=== PATIENT | female | born 1985 | race African-American/Black ===

== ENCOUNTER 2016-11-21 16:41 | Emergency (ER) | payer OTHER ==
[2016-11-21 16:50] VITALS: BMI 29.9
[2016-11-21] MEDS ORDERED: FAMOTIDINE 20 MG/50 ML IVPB 50 ML IVPB ONE ×2 (16:52→17:27)
[2016-11-21] MEDS ORDERED: ONDANSETRON 4 MG/2 ML VIAL IVPB ONE (16:52)
[2016-11-21] MEDS ORDERED: SODIUM CHLORIDE 0.9% 500 ML INFUS.BAG IV ONE (16:52)
--- NOTE | 2016-11-21 17:25 | PDOC ---
[id number] 31 year old female with significant medical hx of DM and gastroparesis who is presenting to the ED with five days of epigastric pain, nausea and vomiting. Patient complains of multiple episodes of vomiting per day ; today shes had two prior to arrival to the ED. She notes noticing little blood in her vomit and states that she's been unable to keep anything down. Today the patient spoke with her PMD who referred her to the ED. Patient reports she recently stopped her reglan a few months ago due to side effects of lower extremity discomfort and cramping. The patient hasnt had a problem since the past week. Denies fever, chills, diarrhea, lightheadedness, dizziness, shortness of breath , dyspnea, chest pain. PMD: Landen Ridley MD <Paulette Flanagan - Last Filed: 11/21/16 18:16> <Neel Zavala - Last Filed: 01/28/17 10:25> - General Chief Complaint: Nausea/Vomiting Stated Complaint: NAUSEA/VOMITING Time Seen by Provider: 11/21/16 16:44 Past History <Paulette Flanagan - Last Filed: 11/21/16 18:16> - Past Medical History Diabetes: Yes - Surgical History Cholecystectomy: Yes - Psycho/Social/Smoking Cessation Hx Anxiety: No Suicidal Ideation: No Smoking History: Never smoked Have you smoked in the past 12 months: No Hx Alcohol Use: No Drug/Substance Use Hx: No Substance Use Type: None Hx Substance Use Treatment: No <Neel Zavala - Last Filed: 01/28/17 10:25> - Past Medical History Allergies/Adverse Reactions: Allergies Allergy/AdvReac Type Severity Reaction Status Date / Time No Known Allergies Allergy Verified 11/21/16 16:45 Home Medications: Ambulatory Orders Insulin Glargine,Hum.rec.anlog [Lantus (10mL VIAL) -] 20 units SQ DAILY Metoclopramide HCl [Reglan -] 5 mg PO TIDAC #90 tablet 05/01/16 Glipizide [Glipizide Xl] 2.5 mg PO BID 06/13/16 Metformin HCl 500 mg PO BID 06/13/16 Acetaminophen [Tylenol .Regular Strength -] 650 mg PO Q6H PRN #0 tablet 09/18/ 16 Cephalexin [Keflex] 500 mg PO TID #15 capsule 06/16/16 Levofloxacin [Levaquin -] 500 mg PO DAILY #7 tablet 11/21/16 Ondansetron [Zofran *Odt*] 4 mg SL TID #60 od.tablet 11/21/16 Review of Systems - Review of Systems Comments:: 11/21/16 18:18 GENERAL/CONSTITUTIONAL: No fever or chills. No weakness. HEAD, EYES, EARS, NOSE AND THROAT: No change in vision. No ear pain or discharge. No sore throat. CARDIOVASCULAR: No chest pain or shortness of breath. RESPIRATORY: No cough, wheezing, or hemoptysis. GASTROINTESTINAL: Nausea, vomiting, abdominal pain. No diarrhea or constipation. GENITOURINARY: No dysuria, frequency, or change in urination. MUSCULOSKELETAL: No joint or muscle swelling or pain. No neck or back pain. SKIN: No rash NEUROLOGIC: No headache, vertigo, loss of consciousness, or change in strength/ sensation. <Paulette Flanagan - Last Filed: 11/21/16 18:16> *Physical Exam - Vital Signs Last Vital Signs Temp Pulse Resp BP Pulse Ox 98.2 F 86 16 149/98 99 11/21/16 16:45 11/21/16 17:40 11/21/16 17:40 11/21/16 17:40 11/21/16 16:45 - Physical Exam Comments: 11/21/16 18:19 GENERAL: Awake, alert, and fully oriented, in no acute distress HEAD: No signs of trauma EYES: PERRLA, EOMI, sclera anicteric, conjunctiva clear ENT: Auricles normal inspection, hearing grossly normal, nares patent, oropharynx clear without exudates. Moist mucosa NECK: Normal ROM, supple, no lymphadenopathy, JVD, or masses LUNGS: Breath sounds equal, clear to auscultation bilaterally. No wheezes, and no crackles HEART: Regular rate and rhythm, normal S1 and S2, no murmurs, rubs or gallops ABDOMEN: Soft, nontender, normoactive bowel sounds. No guarding, no rebound. No masses EXTREMITIES: Normal range of motion, no edema. No clubbing or cyanosis. No cords, erythema, or tenderness NEUROLOGICAL: Cranial nerves II through XII grossly intact. Normal speech, normal gait SKIN: Warm, Dry, normal turgor, no rashes or lesions noted. ENDOCRINE: No increased thirst. No abnormal weight change. HEMATOLOGIC/LYMPHATIC: No anemia, easy bleeding, or history of blood clots. ALLERGIC/IMMUNOLOGIC: No hives or skin allergy. <PanchitoPaulette - Last Filed: 11/21/16 18:16> - Vital Signs Last Vital Signs Temp Pulse Resp BP Pulse Ox 98.2 F 96 H 19 159/106 99 11/21/16 16:45 11/21/16 16:45 11/21/16 16:45 11/21/16 16:45 11/21/16 16:45 <Neel Zavala - Last Filed: 01/28/17 10:25> ED Treatment Course - LABORATORY CBC & Chemistry Diagram: 11/21/16 17:15 11/21/16 17:15 - ADDITIONAL ORDERS Additional order review: Laboratory Results 11/21/16 11/21/16 11/21/16 17:15 17:15 17:01 INR 1.23 H PTT (Actin FS) 29.9 Sodium 137 Potassium 3.6 Chloride 98 Carbon Dioxide 25 Anion Gap 14 BUN 9 D POC Glucometer Random Glucose 121 H Calcium 9.4 Albumin 3.8 D Urine Color [place] Urine Appearance Cloudy Urine pH 6.0 Ur Specific [place] 1.021 Urine Protein 2+ H Urine Glucose (UA) Negative Urine Ketones 1+ H Urine Blood 3+ H Urine Nitrite Positive Urine Bilirubin Negative Urine Urobilinogen 2.0 e.u/dl H Ur Leukocyte Esterase Trace H D Urine RBC 68 Urine WBC 22 Ur Epithelial Cells Few Urine Bacteria Many Hyaline Casts 11 Urine Mucus Many Urine Yeast Few Urine HCG, Qual 11/21/16 11/21/16 16:54 16:51 INR PTT (Actin FS) Sodium Potassium Chloride Carbon Dioxide Anion Gap BUN POC Glucometer 117.20052 Random Glucose Calcium Albumin Urine Color Urine Appearance Urine pH Ur Specific [place] Urine Protein Urine Glucose (UA) Urine Ketones Urine Blood Urine Nitrite Urine Bilirubin Urine Urobilinogen Ur Leukocyte Esterase Urine RBC Urine WBC Ur Epithelial Cells Urine Bacteria Hyaline Casts Urine Mucus Urine Yeast Urine HCG, Qual Negative 11/21/16 11/21/16 17:15 16:54 RBC 4.60 D MCV 79.8 L MCHC 33.0 RDW 15.6 MPV 8.9 Neutrophils % 43.6 D Lymphocytes % 45.9 H D Monocytes % 8.0 Eosinophils % 1.3 Basophils % 1.2 POC Glucometer 117.74753 - Medications Given in the ED: ED Medications Discontinued Medications Generic Name Dose Route Start Last Admin Trade Name Doguie PRN Reason Stop Dose Admin Famotidine/Sodium Chloride 50 mls @ 100 mls/hr 11/21/16 16:52 11/21/16 17:28 Pepcid 20 Mg Premixed Ivpb - IVPB 11/21/16 17:21 100 mls/hr ONCE ONE Administration Ondansetron HCl 4 mg 11/21/16 16:52 11/21/16 17:28 Zofran Injection IVPB 11/21/16 16:53 4 mg ONCE ONE Administration Sodium Chloride 1,000 ml 11/21/16 16:52 11/21/16 17:28 Normal Saline - IV 11/21/16 16:53 1,000 ml ONCE ONE Administration <Paulette Flanagan - Last Filed: 11/21/16 18:16> - LABORATORY CBC & Chemistry Diagram: 11/21/16 17:15 11/21/16 17:15 <Neel Zavala - Last Filed: 01/28/17 10:25> *DC/Admit/Observation/Transfer - Attestations Scribe Attestion: 11/21/16 18:19 Documentation prepared by Paulette Flanagan, acting as medical center director for Neel Zavala MD. <Paulette Flanagan - Last Filed: 11/21/16 18:16> - Attestations Physician Attestion: 11/21/16 17:25 I, Dr. Neel Zavala, attest that this document has been prepared under my direction and personally reviewed by me in its entirety. I further attest, that it accurately reflects all work, treatment, procedures and medical decision -making performed by me. <Neel Zavala - Last Filed: 01/28/17 10:25> Diagnosis at time of Disposition: Gastroparesis due to DM UTI (urinary tract infection) Qualifiers: Urinary tract infection type: site unspecified Hematuria presence: without hematuria Qualified Code(s): N39.0 - Urinary tract infection, site not specified Constipation Qualifiers: Constipation type: other constipation type Qualified Code(s): K59.09 - Other constipation - Discharge Dispostion Disposition: HOME Condition at time of disposition: Stable - Prescriptions Prescriptions: Levofloxacin [Levaquin -] 500 mg PO DAILY #7 tablet Ondansetron [Zofran *Odt*] 4 mg SL TID #60 od.tablet - Referrals Referrals: Landen Ridley MD [Primary Care Provider] - - Patient Instructions Printed Discharge Instructions: Increased Dietary Fiber May Improve Constipation Conditions With Pelvic Jimmy, DI for Urinary Tract Infection (UTI), DI for Constipation
[2016-11-21] MEDS ORDERED: ONDANSETRON 4 MG/2 ML VIAL ONE ×2 (17:27→22:36)
[2016-11-21 17:28] LABS: URINE APPEARANCE CLOUDY; URINE BILIRUBIN NEGATIVE (NEGATIVE); URINE COLOR AMBER; URINE GLUCOSE (UA) NEGATIVE (NEGATIVE); URINE KETONE 1+ (NEGATIVE); URINE NITRITE POSITIVE (NEGATIVE); URINE UROBILINOGEN 2.0 E.U/dl E.U./dl (0.2-1.0)
[2016-11-21 17:29] LABS: URINE BLOOD 3+ (NEGATIVE); URINE LEUK ESTERASE TRACE (NEGATIVE); URINE PROTEIN 2+ (NEGATIVE)
[2016-11-21 17:31] LABS: URINE BACTERIA MANY /hpf (NONE SEEN); URINE HYALINE CAST 11 /lpf; URINE MUCUS MANY; URINE RBC 68 /hpf (0-3); URINE WBC 22 /hpf (3-5); YEAST FEW
[2016-11-21 17:34] LABS: BASOPHIL 1.2 % (0-2.0); EOSINOPHIL 1.3 % (0-4.5); MCH 26.4 pg (25.7-33.7); MEAN CELL VOLUME 79.8 fl (80-96); MEAN PLT VOLUME 8.9 fl (7.5-11.1); NEUTROPHILS 43.6 % (42.8-82.8); PLATELET COUNT 393 K/MM3 (134-434); RDW 15.6 % (11.6-15.6)
[2016-11-21 17:46] LABS: INR 1.23 (0.82-1.09); PROTHROMBIN TIME (PATIENT) 13.6 SEC (9.98-11.88)
[2016-11-21 17:49] LABS: ACTIVATED PTT 29.9 SECONDS (26.9-34.4)
[2016-11-21 18:14] LABS: ALBUMIN 3.8 g/dl (3.4-5.0); ANION GAP 14 (8-16); CALCIUM 9.4 mg/dL (8.5-10.1); CO2 25 mmol/L (21-32); GLUCOSE,RANDOM 121 mg/dL (74-106)
[2016-11-21 18:17] LABS: CREATININE 0.6 mg/dL (0.55-1.02); SGOT/AST 14 U/L (15-37); SGPT/ALT 17 U/L (12-78)
[2016-11-21 18:18] LABS: ALK PHOS 85 U/L (45-117); BILIRUBIN,TOTAL 0.5 mg/dL (0.2-1.0); TOT PROT 8.8 g/dl (6.4-8.2)
[2016-11-21] MEDS ORDERED: INSULIN REGULAR HUMAN 100 UNITS/ML *VIAL IVPUSH ONE (18:43)
[2016-11-21] MEDS ORDERED: SODIUM CHLORIDE 1,000 ML IV STA ×2 (18:43→18:44)
[2016-11-21] MEDS ORDERED: LEVOFLOXACIN 500 MG IVPB 100 ML IVPB ONE ×2 (19:23→19:39)
[2016-11-21] MEDS ORDERED: DEXTROSE 5%-0.45% SALINE 1,000 ML IV SCH (19:30)
[2016-11-21] MEDS ORDERED: INSULIN REGULAR HUMAN 100 UNITS/ML *VIAL ONE (19:40)
[2016-11-21] MEDS ORDERED: KETOROLAC TROMETHAMINE 30 MG/1 ML VIAL IVPUSH ONE (20:33)
[2016-11-21] MEDS ORDERED: KETOROLAC TROMETHAMINE 30 MG/1 ML VIAL ONE (20:39)
[2016-11-21 21:00] LABS: URINE APPEARANCE SLCLOUDY; URINE BILIRUBIN NEGATIVE (NEGATIVE); URINE BLOOD 3+ (NEGATIVE); URINE COLOR YELLOW; URINE GLUCOSE (UA) NEGATIVE (NEGATIVE); URINE KETONE 1+ (NEGATIVE); URINE LEUK ESTERASE NEGATIVE (NEGATIVE); URINE NITRITE POSITIVE (NEGATIVE); URINE PROTEIN NEGATIVE (NEGATIVE); URINE UROBILINOGEN NEGATIVE E.U./dl (0.2-1.0)
[2016-11-21 21:03] LABS: URINE BACTERIA MODERATE /hpf (NONE SEEN); URINE MUCUS MANY; URINE RBC 38 /hpf (0-3); URINE WBC 6 /hpf (3-5); YEAST RARE
[2016-11-21] MEDS ORDERED: LACTULOSE 20 GM/30 ML UDC (FOR ORAL USE ONLY) PO ONE (22:06)
--- NOTE | 2016-11-21 22:09 | PDOC ---
*Physical Exam - Vital Signs Last Vital Signs Temp Pulse Resp BP Pulse Ox 98.2 F 86 16 149/98 99 11/21/16 16:45 11/21/16 17:40 11/21/16 17:40 11/21/16 17:40 11/21/16 16:45 ED Treatment Course - LABORATORY CBC & Chemistry Diagram: 11/21/16 17:15 11/21/16 17:15 - ADDITIONAL ORDERS Additional order review: Laboratory Results 11/21/16 11/21/16 11/21/16 20:30 17:15 17:15 INR 1.23 H PTT (Actin FS) 29.9 Sodium 137 Potassium 3.6 Chloride 98 Carbon Dioxide 25 Anion Gap 14 BUN 9 D Creatinine 0.6 D Creat Clearance w eGFR > 60 POC Glucometer Random Glucose 121 H Calcium 9.4 Total Bilirubin 0.5 D AST 14 L ALT 17 Alkaline Phosphatase 85 Total Protein 8.8 H D Albumin 3.8 D Urine Color Yellow Urine Appearance Slcloudy Urine pH 7.0 Ur Specific [place] 1.014 Urine Protein Negative Urine Glucose (UA) Negative Urine Ketones 1+ H Urine Blood 3+ H Urine Nitrite Positive Urine Bilirubin Negative Urine Urobilinogen Negative Ur Leukocyte Esterase Negative Urine RBC 38 Urine WBC 6 Ur Epithelial Cells Rare Urine Bacteria Moderate Hyaline Casts Urine Mucus Many Urine Yeast Rare Urine HCG, Qual Acetone, Qual 11/21/16 11/21/16 11/21/16 17:15 17:01 16:54 INR PTT (Actin FS) Sodium Potassium Chloride Carbon Dioxide Anion Gap BUN Creatinine Creat Clearance w eGFR POC Glucometer 117.32485 Random Glucose Calcium Total Bilirubin AST ALT Alkaline Phosphatase Total Protein Albumin Urine Color [place] Urine Appearance Cloudy Urine pH 6.0 Ur Specific [place] 1.021 Urine Protein 2+ H Urine Glucose (UA) Negative Urine Ketones 1+ H Urine Blood 3+ H Urine Nitrite Positive Urine Bilirubin Negative Urine Urobilinogen 2.0 e.u/dl H Ur Leukocyte Esterase Trace H D Urine RBC 68 Urine WBC 22 Ur Epithelial Cells Few Urine Bacteria Many Hyaline Casts 11 Urine Mucus Many Urine Yeast Few Urine HCG, Qual Acetone, Qual Positive,trace 11/21/16 16:51 INR PTT (Actin FS) Sodium Potassium Chloride Carbon Dioxide Anion Gap BUN Creatinine Creat Clearance w eGFR POC Glucometer Random Glucose Calcium Total Bilirubin AST ALT Alkaline Phosphatase Total Protein Albumin Urine Color Urine Appearance Urine pH Ur Specific [place] Urine Protein Urine Glucose (UA) Urine Ketones Urine Blood Urine Nitrite Urine Bilirubin Urine Urobilinogen Ur Leukocyte Esterase Urine RBC Urine WBC Ur Epithelial Cells Urine Bacteria Hyaline Casts Urine Mucus Urine Yeast Urine HCG, Qual Negative Acetone, Qual 11/21/16 11/21/16 17:15 16:54 RBC 4.60 D MCV 79.8 L MCHC 33.0 RDW 15.6 MPV 8.9 Neutrophils % 43.6 D Lymphocytes % 45.9 H D Monocytes % 8.0 Eosinophils % 1.3 Basophils % 1.2 POC Glucometer 117.08192 - Medications Given in the ED: ED Medications Discontinued Medications Generic Name Dose Route Start Last Admin Trade Name Freq PRN Reason Stop Dose Admin Famotidine/Sodium Chloride 50 mls @ 100 mls/hr 11/21/16 16:52 11/21/16 17:28 Pepcid 20 Mg Premixed Ivpb - IVPB 11/21/16 17:21 100 mls/hr ONCE ONE Administration Sodium Chloride 1,000 mls @ 1,000 mls/hr 11/21/16 18:43 11/21/16 19:53 Normal Saline - IV 11/21/16 19:42 1,000 mls/hr ASDIR STA Administration Sodium Chloride 1,000 mls @ 1,000 mls/hr 11/21/16 18:44 11/21/16 19:54 Normal Saline - IV 11/21/16 19:43 1,000 mls/hr ASDIR STA Administration Levofloxacin 100 mls @ 100 mls/hr 11/21/16 19:23 11/21/16 19:45 Levaquin 500 Mg Premixed Ivpb - IVPB 11/21/16 20:22 100 mls/hr ONCE ONE Administration Insulin Human Regular 7 units 11/21/16 18:43 11/21/16 19:45 Novolin R Vial *Ivpush / Er / Icu Only* IVPUSH 11/21/16 18:44 7 units ONCE ONE Administration Ketorolac Tromethamine 30 mg 11/21/16 20:33 11/21/16 21:00 Toradol Injection - IVPUSH 11/21/16 20:34 30 mg ONCE ONE Administration Ondansetron HCl 4 mg 11/21/16 16:52 11/21/16 17:28 Zofran Injection IVPB 11/21/16 16:53 4 mg ONCE ONE Administration Sodium Chloride 1,000 ml 11/21/16 16:52 11/21/16 17:28 Normal Saline - IV 11/21/16 16:53 1,000 ml ONCE ONE Administration Medical Decision Making - Medical Decision Making 11/21/16 22:06 patient found to have a urinary tract infection and constipation on lab work and abdominal x-ray. Patient advised to increase her free fluids and roughage. Pt to be discharge. Rx Levaquin 500mg po *DC/Admit/Observation/Transfer Diagnosis at time of Disposition: Gastroparesis due to DM UTI (urinary tract infection) Qualifiers: Urinary tract infection type: site unspecified Hematuria presence: without hematuria Qualified Code(s): N39.0 - Urinary tract infection, site not specified Constipation Qualifiers: Constipation type: other constipation type Qualified Code(s): K59.09 - Other constipation - Discharge Dispostion Disposition: HOME Condition at time of disposition: Stable Admit: No - Referrals Referrals: Landen Ridley MD [Primary Care Provider] - - Patient Instructions Printed Discharge Instructions: DI for Urinary Tract Infection (UTI), DI for Constipation, Increased Dietary Fiber May Improve Constipation Conditions With Pelvic Jimmy - Post Discharge Activity
[2016-11-21] MEDS ORDERED: LACTULOSE 20 GM/30 ML UDC (FOR ORAL USE ONLY) ONE (22:30)
[2016-11-21 23:59] VITALS: BP 129/78; PULSE 74; TEMP 98.3
== END 2016-11-21 23:45 | disposition home or self-care (01) ==
LOC: JER 16:41
PROC: 3E0337Z Introduction of Electrolytic and Water Balance Substance into Peripheral Vein, Percutaneous Approach (ICD-10-PCS; principal; 2016-11-21)
PROC: 3E03329 Introduction of Other Anti-infective into Peripheral Vein, Percutaneous Approach (ICD-10-PCS; 2016-11-21)
PROC: 3E033GC Introduction of Other Therapeutic Substance into Peripheral Vein, Percutaneous Approach (ICD-10-PCS; 2016-11-21)
PROC: 3E033VG Introduction of Insulin into Peripheral Vein, Percutaneous Approach (ICD-10-PCS; 2016-11-21)
PROC: 3E0333Z Introduction of Anti-inflammatory into Peripheral Vein, Percutaneous Approach (ICD-10-PCS; 2016-11-21)
PROC: 3E033GC Introduction of Other Therapeutic Substance into Peripheral Vein, Percutaneous Approach (ICD-10-PCS; 2016-11-21)
DX: N39.0 Urinary tract infection, site not specified (principal); K59.00 Constipation, unspecified; E10.43 Type 1 diabetes mellitus with diabetic autonomic (poly)neuropathy; K31.84 Gastroparesis; Z79.4 Long term (current) use of insulin; Z79.84 Long term (current) use of oral hypoglycemic drugs
CPT/HCPCS: 36415; 71020-TC; 74020-TC; 80053; 81003; 81015; 82009; 84703; 85025; 85610; 85730; 87086; 87186; 99282-25

== ENCOUNTER 2021-03-05 08:12 | Emergency (ER) | payer OTHER ==
[2021-03-05 08:26] VITALS: TEMP 98.6; BMI 43.5
[2021-03-05] MEDS ORDERED: ONDANSETRON 4 MG/2 ML VIAL IVPUSH ONE (08:46)
[2021-03-05] MEDS ORDERED: FAMOTIDINE 20 MG/50 ML IVPB 20 MG/50 ML MG IVPB ONE ×2 (08:46→08:58)
[2021-03-05] MEDS ORDERED: SODIUM CHLORIDE 0.9% 500 ML INFUS.BAG IV ONE (08:46)
[2021-03-05] MEDS ORDERED: ONDANSETRON 4 MG/2 ML VIAL ONE (08:58)
[2021-03-05 09:10] LABS: BASO % 0.6 % (0-2.0); HEMATOCRIT 41.6 % (32.4-45.2); LYMPH % 17.9 % (8-40); MCH 29.1 pg (25.7-33.7); MCHC 33.8 g/dl (32.0-36.0); MEAN CELL VOLUME 86.1 fl (80-96); MEAN PLT VOLUME 9.2 fl (7.5-11.1); MONO % 2.2 % (3.8-10.2); NEUT % 79.3 % (42.8-82.8); PLATELET COUNT 314 K/MM3 (134-434); RBC 4.83 M/mm3 (3.60-5.2); RDW 13.8 % (11.6-15.6); WHITE BLOOD COUNT 5.9 K/mm3 (4.0-10.0)
[2021-03-05 09:18] LABS: CHLORIDE 101 mmol/L (98-107); SODIUM 137 mmol/L (136-145)
[2021-03-05 09:20] LABS: CALCIUM 9.2 mg/dL (8.5-10.1)
[2021-03-05 09:21] LABS: ALBUMIN 3.1 g/dl (3.4-5.0); ANION GAP 9 MMOL/L (8-16); BLOOD UREA NITROGEN 17.9 mg/dL (7-18); CO2 27 mmol/L (21-32); GLUCOSE,RANDOM 239 mg/dL (74-106)
[2021-03-05 09:23] LABS: LIPASE 46 U/L (73-393); SGPT/ALT 23 U/L (13-61)
[2021-03-05 09:24] LABS: CREATININE 0.6 mg/dL (0.55-1.3); SGOT/AST 18 U/L (15-37)
[2021-03-05 09:25] LABS: BILIRUBIN,TOTAL 0.4 mg/dL (0.2-1); TOT PROT 8.6 g/dl (6.4-8.2)
[2021-03-05 09:26] LABS: ALK PHOS 110 U/L (45-117)
[2021-03-05] MEDS ORDERED: METOCLOPRAMIDE HCL INJECTION 10 MG/2 ML VIAL IVPB ONE (09:37)
[2021-03-05] MEDS ORDERED: MAG HYDROX/AL HYDROX/SIMETH 30 ML UNIT-DOSE CUP PO ONE (09:37)
[2021-03-05] MEDS ORDERED: METOCLOPRAMIDE HCL INJECTION 10 MG/2 ML VIAL ONE (09:38)
[2021-03-05] MEDS ORDERED: ERYTHROMYCIN *INJECTION* 500 MG VIAL IVPB ONE (10:35)
[2021-03-05] MEDS ORDERED: MAG HYDROX/AL HYDROX/SIMETH 30 ML UNIT-DOSE CUP ONE (11:06)
[2021-03-05 11:56] VITALS: BP 140/90; PULSE 90
== END 2021-03-05 12:03 | disposition home or self-care (01) ==
LOC: JER 08:12
PROC: 3E033GC Introduction of Other Therapeutic Substance into Peripheral Vein, Percutaneous Approach (ICD-10-PCS; principal; 2021-03-05)
PROC: 3E033GC Introduction of Other Therapeutic Substance into Peripheral Vein, Percutaneous Approach (ICD-10-PCS; 2021-03-05)
PROC: 3E033GC Introduction of Other Therapeutic Substance into Peripheral Vein, Percutaneous Approach (ICD-10-PCS; 2021-03-05)
DX: R73.9 Hyperglycemia, unspecified (principal); R11.2 Nausea with vomiting, unspecified
CPT/HCPCS: 36415; 80053; 82962; 83690; 84484; 84703; 85025; 93005; 93010; 99284-25

== ENCOUNTER 2021-03-06 12:30 | Observation (INO) | payer OTHER ==
[2021-03-06] MEDS ORDERED: ONDANSETRON 4 MG/2 ML VIAL IVPUSH ONE (13:18)
[2021-03-06] MEDS ORDERED: SODIUM CHLORIDE 0.9% 500 ML INFUS.BAG IV ONE (13:18)
[2021-03-06] MEDS ORDERED: MAG HYDROX/AL HYDROX/SIMETH 30 ML UNIT-DOSE CUP PO ONE (13:19)
[2021-03-06] MEDS ORDERED: PANTOPRAZOLE SODIUM 40 MG VIAL IVPUSH ONE (13:19)
[2021-03-06] MEDS ORDERED: METOCLOPRAMIDE HCL INJECTION 10 MG/2 ML VIAL IVPUSH ONE (13:25)
[2021-03-06] MEDS ORDERED: ERYTHROMYCIN *INJECTION* 500 MG VIAL IVPB ONE (13:26)
[2021-03-06] MEDS ORDERED: MAG HYDROX/AL HYDROX/SIMETH 30 ML UNIT-DOSE CUP ONE (13:48)
[2021-03-06] MEDS ORDERED: PANTOPRAZOLE SODIUM 40 MG/100 ML BAG IVPB ONE (13:48)
[2021-03-06] MEDS ORDERED: METOCLOPRAMIDE HCL INJECTION 10 MG/2 ML VIAL ONE (13:48)
[2021-03-06] MEDS ORDERED: AZITHROMYCIN IVPB 500 MG/250 ML BAG IVPB ONE (14:09)
[2021-03-06] MEDS ORDERED: SODIUM CHLORIDE IVPB ONE (14:15)
[2021-03-06] MEDS ORDERED: ERYTHROMYCIN IVPB ONE (14:15)
[2021-03-06] MEDS ORDERED: PROCHLORPERAZINE MALEATE 5 MG TABLET PO ONE (14:36)
[2021-03-06] MEDS ORDERED: PROCHLORPERAZINE INJECTION 10 MG/2 ML VIAL ONE (14:44)
[2021-03-06 15:15] LABS: BASO % 0.5 % (0-2.0); EOS % 0.2 % (0-4.5); HEMATOCRIT 40.7 % (32.4-45.2); HEMOGLOBIN 13.9 GM/dL (10.7-15.3); LYMPH % 24.8 % (8-40); MCH 29.3 pg (25.7-33.7); MCHC 34.2 g/dl (32.0-36.0); MEAN CELL VOLUME 85.7 fl (80-96); MEAN PLT VOLUME 9.2 fl (7.5-11.1); MONO % 4.9 % (3.8-10.2); NEUT % 69.6 % (42.8-82.8); PLATELET COUNT 324 K/MM3 (134-434); RBC 4.75 M/mm3 (3.60-5.2); RDW 13.4 % (11.6-15.6); WHITE BLOOD COUNT 6.9 K/mm3 (4.0-10.0)
[2021-03-06 15:28] LABS: BLOOD UREA NITROGEN 15.9 mg/dL (7-18); CALCIUM 9.1 mg/dL (8.5-10.1)
[2021-03-06 15:31] LABS: CREATININE 0.6 mg/dL (0.55-1.3)
[2021-03-06 15:33] LABS: BILIRUBIN,TOTAL 1.1 mg/dL (0.2-1); TOT PROT 8.3 g/dl (6.4-8.2)
[2021-03-06] MEDS ORDERED: SODIUM CHLORIDE 1,000 ML IV STA (17:42)
[2021-03-06 18:37] LABS: HCG,QUALITATIVE URINE Negative
[2021-03-06 18:43] LABS: EPI CELLS >36 /uL (0-25.1); HYALINE CASTS 3 /uL (0-3.1); PH,URINE 6.5 (5.0-8.0); URINE APPEARANCE CLOUDY; URINE BACTERIA 4647 /uL (0-1359); URINE BILIRUBIN NEGATIVE (NEGATIVE); URINE COLOR YELLOW; URINE GLUCOSE (UA) NEGATIVE (NEGATIVE); URINE KETONE 3+ (NEGATIVE); URINE LEUK ESTERASE TRACE (NEGATIVE); URINE NITRITE NEGATIVE (NEGATIVE); URINE PROTEIN TRACE (NEGATIVE); URINE WBC 74 /uL (0-25.8)
[2021-03-06 19:12] LABS: URINE RBC 50.9 /uL (0-23.9)
[2021-03-06] MEDS: ONDANSETRON 4 MG/2 ML VIAL IVPUSH PRN (22:13)
[2021-03-06] MEDS ORDERED: DEXTROSE 5%-0.45% SALINE 1,000 ML IV SCH (23:45)
[2021-03-07 02:17] VITALS: BMI 42.7
[2021-03-07] MEDS: ONDANSETRON 4 MG/2 ML VIAL IVPUSH PRN (06:01)
[2021-03-07] MEDS: INSULIN SLIDING SCALE (NOVOLOG) 1 VIAL SQ SCH ×4 (06:27→21:24)
[2021-03-07 08:24] LABS: BASO % 0.5 % (0-2.0); EOS % 0.4 % (0-4.5); HEMATOCRIT 37.3 % (32.4-45.2); HEMOGLOBIN 12.9 GM/dL (10.7-15.3); MCH 29.4 pg (25.7-33.7); MCHC 34.6 g/dl (32.0-36.0); MEAN CELL VOLUME 85.2 fl (80-96); MEAN PLT VOLUME 8.9 fl (7.5-11.1); MONO % 4.9 % (3.8-10.2); NEUT % 68.2 % (42.8-82.8); PLATELET COUNT 304 K/MM3 (134-434); RBC 4.38 M/mm3 (3.60-5.2); RDW 13.2 % (11.6-15.6); WHITE BLOOD COUNT 7.3 K/mm3 (4.0-10.0)
[2021-03-07 09:15] LABS: BLOOD UREA NITROGEN 8.1 mg/dL (7-18)
[2021-03-07 09:19] LABS: CREATININE 0.5 mg/dL (0.55-1.3)
[2021-03-07] MEDS ORDERED: D5-NS + 20 MEQ KCL - 20 MEQ/1,000 ML INFUS.BAG IV SCH (10:00)
[2021-03-07] MEDS: METOCLOPRAMIDE HCL INJECTION 10 MG/2 ML VIAL IVPUSH SCH ×2 (13:10→19:03)
[2021-03-07 15:15] LABS: ALBUMIN 2.9 g/dl (3.4-5.0); CALCIUM 8.3 mg/dL (8.5-10.1)
[2021-03-07 15:16] LABS: BLOOD UREA NITROGEN 5.8 mg/dL (7-18)
[2021-03-07 15:19] LABS: CREATININE 0.5 mg/dL (0.55-1.3)
[2021-03-07 15:20] LABS: BILIRUBIN,TOTAL 0.8 mg/dL (0.2-1)
[2021-03-07] MEDS ORDERED: ACETAMINOPHEN 1000 MG/100 ML VIAL (NON FORMULARY) IVPB PRN (21:13)
[2021-03-07 22:06] LABS: EPI CELLS 23 /uL (0-25.1); HYALINE CASTS 0 /uL (0-3.1); URINE APPEARANCE CLEAR; URINE BACTERIA 2577 /uL (0-1359); URINE BILIRUBIN NEGATIVE (NEGATIVE); URINE COLOR YELLOW; URINE GLUCOSE (UA) NEGATIVE (NEGATIVE); URINE KETONE TRACE (NEGATIVE); URINE LEUK ESTERASE NEGATIVE (NEGATIVE); URINE NITRITE NEGATIVE (NEGATIVE); URINE PROTEIN NEGATIVE (NEGATIVE); URINE RBC 3 /uL (0-23.9); URINE WBC 18 /uL (0-25.8)
[2021-03-08] MEDS: METOCLOPRAMIDE HCL INJECTION 10 MG/2 ML VIAL IVPUSH SCH ×2 (01:43→09:57)
[2021-03-08] MEDS: INSULIN SLIDING SCALE (NOVOLOG) 1 VIAL SQ SCH ×3 (06:10→17:18)
[2021-03-08] MEDS ORDERED: PANTOPRAZOLE 40 MG TABLET PO SCH (11:15)
[2021-03-08] MEDS ORDERED: ACETAMINOPHEN 325 MG TABLET (FP) PO PRN (11:31)
[2021-03-08] MEDS ORDERED: INSULIN (LEVEMIR) 100 UNITS/ML UNITS SQ SCH (11:45)
[2021-03-08 11:57] LABS: CALCIUM 8.6 mg/dL (8.5-10.1)
[2021-03-08 11:58] LABS: BLOOD UREA NITROGEN 5.8 mg/dL (7-18)
[2021-03-08 12:01] LABS: CREATININE 0.6 mg/dL (0.55-1.3)
[2021-03-08] MEDS: METOCLOPRAMIDE HCL 10 MG TABLET (FP) PO SCH ×2 (12:28→17:15)
[2021-03-08 12:44] LABS: ALBUMIN 2.8 g/dl (3.4-5.0)
[2021-03-08 12:48] LABS: BILIRUBIN,TOTAL 0.6 mg/dL (0.2-1)
[2021-03-08 12:49] LABS: TOT PROT 7.8 g/dl (6.4-8.2)
[2021-03-08 15:26] VITALS: BP 132/86; PULSE 83; TEMP 98.3
[2021-03-09] MEDS ORDERED: POLYETHYLENE GLYCOL 3350 119 GM BTL PO SCH (10:00)
== END 2021-03-08 18:46 | disposition home or self-care (01) ==
LOC: JER 12:30 → JERBED 15:37 → UNDOADMOB 15:37 → JERBED 19:39 → J5S 19:39 → OBSVTOIN 23:34 → INTOOBSV 23:34 → JERBED 03-07 10:16 → J5S 03-07 10:16
PROVIDERS: ADMIT Family Medicine; ATTEND Family Medicine
PROC: 3E033GC Introduction of Other Therapeutic Substance into Peripheral Vein, Percutaneous Approach (ICD-10-PCS; principal; 2021-03-07)
PROC: 3E03329 Introduction of Other Anti-infective into Peripheral Vein, Percutaneous Approach (ICD-10-PCS; 2021-03-07)
PROC: 3E033GC Introduction of Other Therapeutic Substance into Peripheral Vein, Percutaneous Approach (ICD-10-PCS; 2021-03-07)
PROC: 3E033GC Introduction of Other Therapeutic Substance into Peripheral Vein, Percutaneous Approach (ICD-10-PCS; 2021-03-07)
PROC: 3E033GC Introduction of Other Therapeutic Substance into Peripheral Vein, Percutaneous Approach (ICD-10-PCS; 2021-03-07)
PROC: 3E033GC Introduction of Other Therapeutic Substance into Peripheral Vein, Percutaneous Approach (ICD-10-PCS; 2021-03-07)
DX: E10.43 Type 1 diabetes mellitus with diabetic autonomic (poly)neuropathy (principal); K31.84 Gastroparesis; Z79.4 Long term (current) use of insulin; I10 Essential (primary) hypertension; E87.1 Hypo-osmolality and hyponatremia; E66.01 Morbid (severe) obesity due to excess calories; Z68.41 Body mass index [BMI] 40.0-44.9, adult; F12.20 Cannabis dependence, uncomplicated; R77.8 Other specified abnormalities of plasma proteins; Z98.84 Bariatric surgery status
CPT/HCPCS: 36415; 71046-TC-FY; 74176-TC; 76775-TC; 76856-TC; 80048; 80053; 81003; 82962; 83036; 83690; 84155; 84165; 84703; 85025; 93005; 93010; 96361; 96365; 96375; 99285-25; C9803; G0378; J0131; Q9967; U0003; U0005

== ENCOUNTER 2022-02-26 15:30 | Inpatient (IN) | payer BC, OTHER ==
[2022-02-26] MEDS ORDERED: MAG HYDROX/AL HYDROX/SIMETH -MYLANTA- ORAL SUSPENSION PO ONE (17:19)
[2022-02-26] MEDS ORDERED: FAMOTIDINE 20 MG/50 ML IVPB 20 MG in PREMIX 50 IVPB ONE (17:19)
[2022-02-26] MEDS ORDERED: SODIUM CHLORIDE 0.9% 500 ML INFUS.BAG IV ONE (17:23)
[2022-02-26] MEDS ORDERED: ONDANSETRON 4 MG/2 ML VIAL ONE (17:56)
[2022-02-26] MEDS ORDERED: MAG HYDROX/AL HYDROX/SIMETH 30 ML UNIT-DOSE CUP ONE (17:56)
[2022-02-26] MEDS ORDERED: FAMOTIDINE 20 MG/50 ML IVPB 20 MG/50 ML MG IVPB ONE (17:57)
[2022-02-26] MEDS: ONDANSETRON 4 MG/2 ML VIAL IVPUSH PRN (18:16)
[2022-02-26 19:10] LABS: BASO % 0.3 % (0-2.0); HEMATOCRIT 40.2 % (32.4-45.2); HEMOGLOBIN 13.6 GM/dL (10.7-15.3); LYMPH % 16.3 % (8-40); MCHC 33.7 g/dl (32.0-36.0); MEAN PLT VOLUME 10.2 fl (7.5-11.1); MONO % 5.1 % (3.8-10.2); NEUT % 78.3 % (42.8-82.8); PLATELET COUNT 337 10^3/uL (134-434); RBC 4.68 M/mm3 (3.60-5.2); RDW 13.9 % (11.6-15.6)
[2022-02-26 19:23] LABS: ALBUMIN 3.3 g/dl (3.4-5.0); CALCIUM 9.7 mg/dL (8.5-10.1)
[2022-02-26 19:24] LABS: VENOUS BASE EXCESS 3.9 mmol/L (-2-2); VENOUS O2 SATURATION 92.6 % (70-80); VENOUS PCO2 44.7 mmHg (38-52); VENOUS PH 7.429 (7.310-7.410)
[2022-02-26 19:26] LABS: CREATININE 0.7 mg/dL (0.55-1.3)
[2022-02-26 19:27] LABS: BILIRUBIN,TOTAL 0.5 mg/dL (0.2-1)
[2022-02-26 19:28] LABS: TOT PROT 8.4 g/dl (6.4-8.2)
[2022-02-26] MEDS ORDERED: SODIUM CHLORIDE 1,000 ML IV STA ×2 (19:49→19:50)
[2022-02-26 22:24] LABS: EPI CELLS >36 /uL (0-25.1); HYALINE CASTS 8 /uL (0-3.1); URINE APPEARANCE CLEAR; URINE BACTERIA 555 /uL (0-1359); URINE BILIRUBIN NEGATIVE (NEGATIVE); URINE COLOR YELLOW; URINE GLUCOSE (UA) 3+ (NEGATIVE); URINE KETONE 4+ (NEGATIVE); URINE LEUK ESTERASE NEGATIVE (NEGATIVE); URINE NITRITE NEGATIVE (NEGATIVE); URINE PROTEIN 2+ (NEGATIVE); URINE RBC 6 /uL (0-23.9)
[2022-02-26 22:28] LABS: URINE WBC 96 /uL (0-25.8)
[2022-02-27] MEDS ORDERED: POLYETHYLENE GLYCOL (HEALTHYLAX) 3350 17 GM PACKET PO PRN (00:53)
[2022-02-27] MEDS ORDERED: ACETAMINOPHEN 325 MG TABLET (FP) PO PRN (00:53)
[2022-02-27] MEDS ORDERED: ACETAMINOPHEN 325 MG TABLET (FP) ONE (02:38)
[2022-02-27] MEDS ORDERED: ONDANSETRON 4 MG/2 ML VIAL ONE (02:46)
[2022-02-27] MEDS: ONDANSETRON 4 MG/2 ML VIAL IVPUSH PRN (02:53)
[2022-02-27] MEDS ORDERED: TRIMETHOBENZAMIDE HCL 200MG/2ML INJ IM PRN (07:17)
[2022-02-27] MEDS ORDERED: glipiZIDE 5 MG TABLET (FP) ONE (07:30)
[2022-02-27] MEDS ORDERED: TRIMETHOBENZAMIDE HCL 200MG/2ML INJ IM ONE (07:30)
[2022-02-27] MEDS: glipiZIDE 5 MG TABLET (FP) PO SCH ×2 (07:37→17:26)
[2022-02-27] MEDS: INSULIN SLIDING SCALE (NOVOLOG) 1 VIAL SQ SCH ×4 (07:41→22:11)
[2022-02-27] MEDS: SODIUM CHLORIDE 1,000 ML IV SCH ×3 (07:42→20:30)
[2022-02-27] MEDS ORDERED: METOCLOPRAMIDE HCL INJECTION 10 MG/2 ML VIAL IVPUSH PRN (07:43)
[2022-02-27] MEDS ORDERED: ACETAMINOPHEN 1000 MG/100 ML BAG IVPB PRN (07:55)
[2022-02-27] MEDS ORDERED: ENOXAPARIN NA (PORCINE) 40 MG/0.4 ML DISP.SYRIN SQ ONE (09:21)
[2022-02-27] MEDS ORDERED: amLODIPine BESYLATE 5 MG TABLET (FP) ONE (09:21)
[2022-02-27] MEDS ORDERED: PANTOPRAZOLE 40 MG TABLET PO ONE (09:21)
[2022-02-27] MEDS: amLODIPine BESYLATE 5 MG TABLET (FP) PO SCH (09:28)
[2022-02-27] MEDS: ENOXAPARIN NA (PORCINE) 40 MG/0.4 ML DISP.SYRIN SQ SCH (09:28)
[2022-02-27] MEDS ORDERED: PANTOPRAZOLE 40 MG TABLET PO SCH (10:00)
[2022-02-27] MEDS: METOCLOPRAMIDE HCL INJECTION 10 MG/2 ML VIAL IVPUSH SCH ×2 (10:34→17:25)
[2022-02-27] MEDS: INSULIN (LEVEMIR) 100 UNITS/ML UNITS SQ SCH ×2 (12:23→22:11)
[2022-02-27 19:21] VITALS: BMI 41.1
[2022-02-27 19:53] LABS: PHENCYCLIDINE,URINE NEGATIVE (NEGATIVE); URINE BARBITURATES NEGATIVE (NEGATIVE)
[2022-02-27 19:54] LABS: COCAINE, UR NEGATIVE (NEGATIVE); METHADONE, UR NEGATIVE (NEGATIVE); OPIATES, URI NEGATIVE (NEGATIVE); URINE AMPHETAMINES NEGATIVE (NEGATIVE); URINE BENZODIAZEPINES NEGATIVE (NEGATIVE)
[2022-02-27] MEDS ORDERED: MELATONIN 5 MG TABLETS PO PRN (21:20)
[2022-02-28] MEDS: METOCLOPRAMIDE HCL INJECTION 10 MG/2 ML VIAL IVPUSH SCH (01:41)
[2022-02-28] MEDS: glipiZIDE 5 MG TABLET (FP) PO SCH ×2 (06:09→17:57)
[2022-02-28] MEDS: INSULIN (LEVEMIR) 100 UNITS/ML UNITS SQ SCH ×2 (06:09→21:29)
[2022-02-28] MEDS: INSULIN SLIDING SCALE (NOVOLOG) 1 VIAL SQ SCH ×4 (06:10→21:30)
[2022-02-28] MEDS: SODIUM CHLORIDE 1,000 ML IV SCH (06:13)
[2022-02-28] MEDS ORDERED: METOCLOPRAMIDE HCL INJECTION 10 MG/2 ML VIAL IVPUSH PRN (08:46)
[2022-02-28] MEDS: POLYETHYLENE GLYCOL (HEALTHYLAX) 3350 17 GM PACKET PO SCH (10:46)
[2022-02-28] MEDS: ENOXAPARIN NA (PORCINE) 40 MG/0.4 ML DISP.SYRIN SQ SCH (10:47)
[2022-02-28] MEDS: amLODIPine BESYLATE 5 MG TABLET (FP) PO SCH (10:47)
[2022-02-28] MEDS: METOCLOPRAMIDE HCL 10 MG TABLET (FP) PO SCH ×2 (10:47→17:57)
[2022-02-28] MEDS: VALSARTAN 80 MG TABLET PO SCH (10:47)
[2022-02-28 11:18] LABS: BASO % 0.5 % (0-2.0); EOS % 0.9 % (0-4.5); HEMATOCRIT 40.1 % (32.4-45.2); HEMOGLOBIN 13.7 GM/dL (10.7-15.3); LYMPH % 26.6 % (8-40); MCHC 34.1 g/dl (32.0-36.0); MEAN CELL VOLUME 84.8 fl (80-96); MEAN PLT VOLUME 8.9 fl (7.5-11.1); MONO % 6.7 % (3.8-10.2); NEUT % 65.3 % (42.8-82.8); PLATELET COUNT 290 10^3/uL (134-434); RBC 4.73 M/mm3 (3.60-5.2); RDW 13.1 % (11.6-15.6); WHITE BLOOD COUNT 7.3 K/mm3 (4.0-10.0)
[2022-02-28 11:23] LABS: INR 1.22 (0.83-1.09); PROTHROMBIN TIME (PATIENT) 14.1 SEC (9.7-13.0)
[2022-02-28 11:26] LABS: ACTIVATED PTT 29.6 SECONDS (25.2-36.5)
[2022-02-28 11:42] LABS: BLOOD UREA NITROGEN 6.5 mg/dL (7-18); CALCIUM 8.8 mg/dL (8.5-10.1); MAGNESIUM 1.9 mg/dL (1.8-2.4)
[2022-02-28 11:46] LABS: CREATININE 0.4 mg/dL (0.55-1.3)
[2022-02-28] MEDS: KCL 10 MEQ IVPB 10 MEQ/100 ML INFUS.BAG IVPB SCH ×2 (17:56→20:21)
[2022-02-28] MEDS: FAMOTIDINE 20 MG TABLET PO SCH (17:57)
[2022-03-01] MEDS: METOCLOPRAMIDE HCL 10 MG TABLET (FP) PO SCH (06:01)
[2022-03-01] MEDS: glipiZIDE 5 MG TABLET (FP) PO SCH (06:01)
[2022-03-01] MEDS: INSULIN SLIDING SCALE (NOVOLOG) 1 VIAL SQ SCH ×2 (06:01→11:21)
[2022-03-01] MEDS: INSULIN (LEVEMIR) 100 UNITS/ML UNITS SQ SCH (06:02)
[2022-03-01] MEDS ORDERED: METOCLOPRAMIDE HCL 10 MG TABLET (FP) PO PRN (07:03)
[2022-03-01] MEDS: VALSARTAN 80 MG TABLET PO SCH (10:47)
[2022-03-01] MEDS: ENOXAPARIN NA (PORCINE) 40 MG/0.4 ML DISP.SYRIN SQ SCH (10:47)
[2022-03-01] MEDS: amLODIPine BESYLATE 5 MG TABLET (FP) PO SCH (10:47)
[2022-03-01] MEDS: POLYETHYLENE GLYCOL (HEALTHYLAX) 3350 17 GM PACKET PO SCH (10:47)
[2022-03-01] MEDS: FAMOTIDINE 20 MG TABLET PO SCH (10:47)
[2022-03-01 13:50] LABS: BLOOD UREA NITROGEN 8.2 mg/dL (7-18)
[2022-03-01 13:51] LABS: CALCIUM 9.3 mg/dL (8.5-10.1)
[2022-03-01 14:11] LABS: CREATININE 0.5 mg/dL (0.55-1.3)
[2022-03-01 14:52] VITALS: BP 154/76; PULSE 89; TEMP 98.5
== END 2022-03-01 14:40 | disposition home or self-care (01) | DRG 74 ==
LOC: JER 15:30 → JERBED 21:26 → J5S 02-27 10:13
PROVIDERS: ADMIT Hospitalist; ATTEND Family Medicine
DX: E11.43 Type 2 diabetes mellitus with diabetic autonomic (poly)neuropathy (principal); Z68.41 Body mass index [BMI] 40.0-44.9, adult; K31.84 Gastroparesis; I10 Essential (primary) hypertension; E66.01 Morbid (severe) obesity due to excess calories; K21.9 Gastro-esophageal reflux disease without esophagitis; E11.40 Type 2 diabetes mellitus with diabetic neuropathy, unspecified; R11.2 Nausea with vomiting, unspecified; E11.65 Type 2 diabetes mellitus with hyperglycemia; F41.8 Other specified anxiety disorders; R11.10 Vomiting, unspecified; F12.20 Cannabis dependence, uncomplicated; Z91.14 Patient's other noncompliance with medication regimen
CPT/HCPCS: 36415; 71045-TC-FY; 80048; 80053; 80307; 81003; 82010; 82803; 82962; 83690; 83735; 84484; 84703; 85025; 85610; 85730; 93005; 93010; 99285-25; C9803-CS; U0003; U0005

== ENCOUNTER 2022-07-27 12:52 | Emergency (ER) | payer BC, OTHER ==
[2022-07-27 13:04] VITALS: BP 124/85; PULSE 114; RESP 18; TEMP 98.1; BMI 43.5
[2022-07-27] MEDS ORDERED: SODIUM CHLORIDE 0.9% 500 ML INFUS.BAG IV ONE (13:49)
[2022-07-27 14:57] LABS: BASO % 0.4 % (0-2.0); EOS % 0.2 % (0-4.5); HEMATOCRIT 42.8 % (32.4-45.2); HEMOGLOBIN 14.6 GM/dL (10.7-15.3); LYMPH % 14.5 % (8-40); MCH 29.4 pg (25.7-33.7); MEAN CELL VOLUME 86.3 fl (80-96); MEAN PLT VOLUME 9.6 fl (7.5-11.1); MONO % 3.4 % (3.8-10.2); NEUT % 81.5 % (42.8-82.8); PLATELET COUNT 357 10^3/uL (134-434); RBC 4.95 M/mm3 (3.60-5.2); RDW 13.5 % (11.6-15.6); WHITE BLOOD COUNT 11.3 K/mm3 (4.0-10.0)
[2022-07-27 15:13] LABS: CALCIUM 9.5 mg/dL (8.5-10.1)
[2022-07-27 15:14] LABS: ALBUMIN 3.4 g/dl (3.4-5.0); BLOOD UREA NITROGEN 19.6 mg/dL (7-18)
[2022-07-27 15:17] LABS: CREATININE 0.7 mg/dL (0.55-1.3)
[2022-07-27 15:18] LABS: BILIRUBIN,TOTAL 0.5 mg/dL (0.2-1); TOT PROT 8.6 g/dl (6.4-8.2)
[2022-07-27] MEDS ORDERED: METOCLOPRAMIDE HCL INJECTION 10 MG/2 ML VIAL IVPUSH ONE ×2 (15:41→19:07)
[2022-07-27] MEDS ORDERED: METOCLOPRAMIDE HCL INJECTION 10 MG/2 ML VIAL ONE ×2 (15:43→19:07)
[2022-07-27 15:56] LABS: EPI CELLS 11 /uL (0-25.1); HYALINE CASTS 3 /uL (0-3.1); PH,URINE 5.5 (5.0-8.0); URINE APPEARANCE CLEAR; URINE BACTERIA 230 /uL (0-1359); URINE BILIRUBIN NEGATIVE (NEGATIVE); URINE COLOR YELLOW; URINE GLUCOSE (UA) 3+ (NEGATIVE); URINE KETONE 4+ (NEGATIVE); URINE LEUK ESTERASE NEGATIVE (NEGATIVE); URINE NITRITE NEGATIVE (NEGATIVE); URINE PROTEIN 2+ (NEGATIVE); URINE RBC 5 /uL (0-23.9); URINE UROBILINOGEN 0.2 mg/dL (0.2-1.0)
== END 2022-07-27 20:45 | disposition home or self-care (01) ==
LOC: JER 12:52
PROC: 3E033GC Introduction of Other Therapeutic Substance into Peripheral Vein, Percutaneous Approach (ICD-10-PCS; principal; 2022-07-27)
PROC: 3E033GC Introduction of Other Therapeutic Substance into Peripheral Vein, Percutaneous Approach (ICD-10-PCS; 2022-07-27)
DX: R11.2 Nausea with vomiting, unspecified (principal)
CPT/HCPCS: 36415; 76705-TC; 80053; 81003; 82010; 82150; 82962; 85025; 87086; 87186; 93005; 93010; 96374; 96375; 99285-25

== ENCOUNTER 2022-07-29 11:35 | Observation (INO) | payer OTHER ==
[2022-07-29] MEDS ORDERED: SODIUM CHLORIDE 0.9% 500 ML INFUS.BAG IV ONE ×3 (13:21→18:04)
[2022-07-29] MEDS ORDERED: METOCLOPRAMIDE HCL INJECTION 10 MG/2 ML VIAL IVPB ONE (13:21)
[2022-07-29 14:25] LABS: BASO % 1.2 % (0-2.0); EOS % 0.8 % (0-4.5); HEMATOCRIT 41.5 % (32.4-45.2); HEMOGLOBIN 14.2 GM/dL (10.7-15.3); LYMPH % 25.9 % (8-40); MCH 29.2 pg (25.7-33.7); MCHC 34.2 g/dl (32.0-36.0); MEAN CELL VOLUME 85.3 fl (80-96); MEAN PLT VOLUME 9.4 fl (7.5-11.1); MONO % 6.6 % (3.8-10.2); NEUT % 65.5 % (42.8-82.8); PLATELET COUNT 290 10^3/uL (134-434); RBC 4.86 M/mm3 (3.60-5.2); RDW 13.4 % (11.6-15.6); WHITE BLOOD COUNT 8.4 K/mm3 (4.0-10.0)
[2022-07-29 14:44] LABS: CALCIUM 9.2 mg/dL (8.5-10.1)
[2022-07-29 14:45] LABS: ALBUMIN 3.1 g/dl (3.4-5.0); BLOOD UREA NITROGEN 14.8 mg/dL (7-18)
[2022-07-29 14:48] LABS: CREATININE 0.6 mg/dL (0.55-1.3)
[2022-07-29 14:49] LABS: BILIRUBIN,TOTAL 0.6 mg/dL (0.2-1); TOT PROT 8.1 g/dl (6.4-8.2)
[2022-07-29] MEDS ORDERED: METOCLOPRAMIDE HCL INJECTION 10 MG/2 ML VIAL ONE (15:12)
[2022-07-29] MEDS ORDERED: MAG HYDROX/AL HYDROX/SIMETH 30 ML UNIT-DOSE CUP PO ONE (16:54)
[2022-07-29] MEDS ORDERED: FAMOTIDINE 20 MG/50 ML IVPB 20 MG/50 ML MG IVPB ONE (16:54)
[2022-07-29] MEDS ORDERED: MAG HYDROX/AL HYDROX/SIMETH 30 ML UNIT-DOSE CUP ONE (17:53)
[2022-07-29] MEDS ORDERED: FAMOTIDINE 10 MG/ML VIAL IVPB ONE (17:53)
[2022-07-29] MEDS ORDERED: ONDANSETRON 4 MG/2 ML VIAL IVPUSH ONE (18:02)
[2022-07-29 19:47] LABS: EPI CELLS >36 /uL (0-25.1); HYALINE CASTS 79 /uL (0-3.1); URINE APPEARANCE TURBID; URINE BILIRUBIN NEGATIVE (NEGATIVE); URINE COLOR YELLOW; URINE GLUCOSE (UA) 2+ (NEGATIVE); URINE KETONE 3+ (NEGATIVE); URINE LEUK ESTERASE 2+ (NEGATIVE); URINE NITRITE NEGATIVE (NEGATIVE); URINE PROTEIN 1+ (NEGATIVE); URINE WBC 626 /uL (0-25.8)
[2022-07-29 19:52] LABS: HCG,QUALITATIVE URINE Negative
[2022-07-29 20:49] LABS: URINE BACTERIA >1359 /uL (0-1359)
[2022-07-29] MEDS ORDERED: ONDANSETRON 4 MG/2 ML VIAL IVPUSH PRN (21:51)
[2022-07-29] MEDS ORDERED: MELATONIN 5 MG TABLETS PO PRN (22:02)
[2022-07-30] MEDS: ACETAMINOPHEN 1000 MG/100 ML BAG IVPB PRN ×2 (00:42→18:17)
[2022-07-30] MEDS: SODIUM CHLORIDE 1,000 ML IV SCH ×3 (00:42→21:18)
[2022-07-30] MEDS: METOCLOPRAMIDE HCL INJECTION 10 MG/2 ML VIAL IVPUSH SCH ×5 (00:42→21:21)
[2022-07-30] MEDS: INSULIN SLIDING SCALE (NOVOLOG) 1 VIAL SQ SCH ×5 (00:53→21:19)
[2022-07-30] MEDS ORDERED: MINERAL OIL ENEMA 133 ML ENEMA RC PRN (06:19)
[2022-07-30] MEDS ORDERED: POLYETHYLENE GLYCOL (HEALTHYLAX) 3350 17 GM PACKET PO PRN (06:20)
[2022-07-30 06:25] VITALS: RESP 18
[2022-07-30 08:26] VITALS: BMI 39.1
[2022-07-30] MEDS: ENOXAPARIN NA (PORCINE) 40 MG/0.4 ML DISP.SYRIN SQ SCH (09:21)
[2022-07-30] MEDS: amLODIPine BESYLATE 5 MG TABLET (FP) PO SCH (09:21)
[2022-07-30] MEDS: VALSARTAN 80 MG TABLET PO SCH (09:21)
[2022-07-30] MEDS: PANTOPRAZOLE 40 MG TABLET PO SCH (09:22)
[2022-07-30] MEDS ORDERED: FAMOTIDINE 20 MG TABLET PO SCH (10:00)
[2022-07-30] MEDS ORDERED: POLYETHYLENE GLYCOL (HEALTHYLAX) 3350 17 GM PACKET PO SCH (10:00)
[2022-07-30 10:26] LABS: BASO % 0.6 % (0-2.0); HEMATOCRIT 40.7 % (32.4-45.2); HEMOGLOBIN 13.7 GM/dL (10.7-15.3); MCH 28.4 pg (25.7-33.7); MCHC 33.5 g/dl (32.0-36.0); MEAN CELL VOLUME 84.7 fl (80-96); MEAN PLT VOLUME 9.4 fl (7.5-11.1); MONO % 6.9 % (3.8-10.2); NEUT % 60.5 % (42.8-82.8); PLATELET COUNT 277 10^3/uL (134-434); RBC 4.81 M/mm3 (3.60-5.2); RDW 13.1 % (11.6-15.6)
[2022-07-30 10:39] LABS: BLOOD UREA NITROGEN 8.1 mg/dL (7-18); CALCIUM 8.7 mg/dL (8.5-10.1)
[2022-07-30 10:42] LABS: CREATININE 0.5 mg/dL (0.55-1.3)
[2022-07-30] MEDS: POLYETHYLENE GLYCOL (HEALTHYLAX) 3350 17 GM PACKET PO SCH ×2 (14:16→21:18)
[2022-07-30] MEDS ORDERED: POTASSIUM CHLORIDE TABS 20 MEQ TABLET.ER (FP) PO ONE (14:30)
[2022-07-30] MEDS: CEFTRIAXONE 1 GM in DEXTROSE 5%-WATER - 50 ML IVPB SCH (16:34)
[2022-07-30] MEDS ORDERED: ACETAMINOPHEN 325 MG TABLET (FP) PO PRN (21:51)
[2022-07-31] MEDS: SODIUM CHLORIDE 1,000 ML IV SCH (06:26)
[2022-07-31] MEDS: POLYETHYLENE GLYCOL (HEALTHYLAX) 3350 17 GM PACKET PO SCH ×2 (06:27→15:08)
[2022-07-31] MEDS: METOCLOPRAMIDE HCL INJECTION 10 MG/2 ML VIAL IVPUSH SCH ×2 (06:27→15:08)
[2022-07-31] MEDS: INSULIN SLIDING SCALE (NOVOLOG) 1 VIAL SQ SCH ×3 (06:41→16:41)
[2022-07-31] MEDS ORDERED: INSULIN (LEVEMIR) 100 UNITS/ML UNITS SQ SCH (07:00)
[2022-07-31] MEDS: CEFTRIAXONE 1 GM in DEXTROSE 5%-WATER - 50 ML IVPB SCH (10:04)
[2022-07-31] MEDS: amLODIPine BESYLATE 5 MG TABLET (FP) PO SCH (10:04)
[2022-07-31] MEDS: VALSARTAN 80 MG TABLET PO SCH (10:04)
[2022-07-31] MEDS: PANTOPRAZOLE 40 MG TABLET PO SCH (10:04)
[2022-07-31] MEDS: ENOXAPARIN NA (PORCINE) 40 MG/0.4 ML DISP.SYRIN SQ SCH (10:04)
[2022-07-31 10:38] LABS: HEMATOCRIT 41.1 % (32.4-45.2); HEMOGLOBIN 13.9 GM/dL (10.7-15.3); MCH 28.7 pg (25.7-33.7); MCHC 33.9 g/dl (32.0-36.0); MEAN CELL VOLUME 84.6 fl (80-96); RBC 4.85 M/mm3 (3.60-5.2); RDW 13.2 % (11.6-15.6); WHITE BLOOD COUNT 6.9 K/mm3 (4.0-10.0)
[2022-07-31 10:39] LABS: EOS % 1.7 % (0-4.5); LYMPH % 28.6 % (8-40); MEAN PLT VOLUME 9.5 fl (7.5-11.1); NEUT % 61.7 % (42.8-82.8); PLATELET COUNT 282 10^3/uL (134-434)
[2022-07-31 10:57] LABS: BLOOD UREA NITROGEN 6.6 mg/dL (7-18); CALCIUM 8.8 mg/dL (8.5-10.1)
[2022-07-31 10:58] LABS: ALBUMIN 2.8 g/dl (3.4-5.0)
[2022-07-31 11:02] LABS: BILIRUBIN,TOTAL 0.6 mg/dL (0.2-1); TOT PROT 7.3 g/dl (6.4-8.2)
[2022-07-31 11:03] LABS: CREATININE 0.4 mg/dL (0.55-1.3)
[2022-07-31] MEDS ORDERED: SODIUM CHLORIDE 0.9%/KCL 20 MEQ/1,000 ML INFUS.BAG IV SCH (11:30)
[2022-07-31 14:54] VITALS: BP 147/91; PULSE 89; TEMP 98.3
== END 2022-07-31 16:40 | disposition home or self-care (01) ==
LOC: JER 11:35 → JERBED 18:03 → J5S 07-30 00:11
PROVIDERS: ADMIT Family Medicine; ATTEND Family Medicine
PROC: 3E023GC Introduction of Other Therapeutic Substance into Muscle, Percutaneous Approach (ICD-10-PCS; principal; 2022-07-29)
PROC: 3E033NZ Introduction of Analgesics, Hypnotics, Sedatives into Peripheral Vein, Percutaneous Approach (ICD-10-PCS; 2022-07-29)
PROC: 3E03329 Introduction of Other Anti-infective into Peripheral Vein, Percutaneous Approach (ICD-10-PCS; 2022-07-29)
PROC: 3E033GC Introduction of Other Therapeutic Substance into Peripheral Vein, Percutaneous Approach (ICD-10-PCS; 2022-07-29)
PROC: 3E0337Z Introduction of Electrolytic and Water Balance Substance into Peripheral Vein, Percutaneous Approach (ICD-10-PCS; 2022-07-29)
DX: E11.43 Type 2 diabetes mellitus with diabetic autonomic (poly)neuropathy (principal); K31.84 Gastroparesis; I10 Essential (primary) hypertension; K21.9 Gastro-esophageal reflux disease without esophagitis; E66.01 Morbid (severe) obesity due to excess calories; Z68.39 Body mass index [BMI] 39.0-39.9, adult
CPT/HCPCS: 0241U-QW; 36415; 71045-TC-FY; 80048; 80053; 81003; 82150; 82962; 83690; 83735; 84703; 85025; 86140; 87086; 87186; 93005; 93010; 99285-25; G0378

== ENCOUNTER 2023-11-05 16:37 | Emergency (ER) | payer OTHER ==
[2023-11-05 16:42] VITALS: BMI 42.7
[2023-11-05 19:16] LABS: BASO % 0.2 % (0-2.0); HEMATOCRIT 42.6 % (32.4-45.2); HEMOGLOBIN 14.3 GM/dL (10.7-15.3); MCH 29.5 pg (25.7-33.7); MCHC 33.5 g/dl (32.0-36.0); MEAN CELL VOLUME 88.1 fl (80-96); MEAN PLT VOLUME 9.9 fl (7.5-11.1); MONO % 4.8 % (3.8-10.2); PLATELET COUNT 365 10^3/uL (134-434); RBC 4.84 M/mm3 (3.60-5.2); RDW 14.5 % (11.6-15.6); WHITE BLOOD COUNT 12.4 K/mm3 (4.0-10.0)
[2023-11-05 19:22] LABS: VENOUS BASE EXCESS 5.4 mmol/L (-2-2); VENOUS O2 SATURATION 95.6 % (70-80); VENOUS PCO2 45.3 mmHg (38-52); VENOUS PH 7.444 (7.310-7.410)
[2023-11-05 19:29] LABS: CHLORIDE 96 mmol/L (98-107); POTASSIUM 4.2 mmol/L (3.5-5.1); SODIUM 136 mmol/L (136-145)
[2023-11-05 19:31] LABS: BLOOD UREA NITROGEN 33.8 mg/dL (7-18); CALCIUM 9.1 mg/dL (8.5-10.1)
[2023-11-05 19:32] LABS: ANION GAP 12 mmol/L (4-13); CO2 29 mmol/L (21-32)
[2023-11-05 19:34] LABS: CREATININE 0.9 mg/dL (0.55-1.3)
[2023-11-05 19:35] LABS: SGOT/AST 48 U/L (15-37); SGPT/ALT 272 U/L (13-61)
[2023-11-05 19:36] LABS: BILIRUBIN,TOTAL 0.8 mg/dL (0.2-1); TOT PROT 8.5 g/dl (6.4-8.2)
[2023-11-05 19:38] LABS: ALK PHOS 504 U/L (45-117)
[2023-11-05 19:53] LABS: GLUCOSE,RANDOM 431 mg/dL (74-106)
[2023-11-05] MEDS ORDERED: ONDANSETRON 4 MG/2 ML VIAL ONE (20:48)
[2023-11-05] MEDS ORDERED: INSULIN REGULAR HUMAN 100 UNITS/ML *VIAL ONE (20:48)
[2023-11-05] MEDS: INSULIN REGULAR HUMAN 100 UNITS/ML *VIAL IVPUSH ONE (21:09)
[2023-11-05] MEDS: SODIUM CHLORIDE 0.9% 500 ML INFUS.BAG IV ONE (21:09)
[2023-11-05] MEDS: ONDANSETRON 4 MG/2 ML VIAL IVPUSH ONE (21:10)
[2023-11-06 00:42] VITALS: BP 111/57; PULSE 97; RESP 16; TEMP 98.2
[2023-11-06] MEDS ORDERED: ONDANSETRON 4 MG/2 ML VIAL ONE (00:55)
[2023-11-06] MEDS: ONDANSETRON 4 MG/2 ML VIAL IVPUSH ONE (01:02)
[2023-11-06] MEDS: SUCRALFATE 1 GM TABLET (FP) PO ONE (03:32)
[2023-11-06] MEDS ORDERED: SUCRALFATE 1 GM TABLET (FP) ONE (06:51)
== END 2023-11-06 07:26 | disposition home or self-care (01) ==
LOC: JER 16:37
PROC: 3E033NZ Introduction of Analgesics, Hypnotics, Sedatives into Peripheral Vein, Percutaneous Approach (ICD-10-PCS; principal; 2023-11-05)
PROC: 3E033GC Introduction of Other Therapeutic Substance into Peripheral Vein, Percutaneous Approach (ICD-10-PCS; 2023-11-05)
PROC: 3E033NZ Introduction of Analgesics, Hypnotics, Sedatives into Peripheral Vein, Percutaneous Approach (ICD-10-PCS; 2023-11-06)
DX: R11.2 Nausea with vomiting, unspecified (principal); R10.13 Epigastric pain; E10.65 Type 1 diabetes mellitus with hyperglycemia; R07.89 Other chest pain; Z20.822 Contact with and (suspected) exposure to COVID-19
CPT/HCPCS: 0241U-QW; 36415; 71046-TC-FY; 74177-TC; 76705-TC; 80053; 82550; 82803; 82962; 84484; 84703; 85025; 93005; 93010; 99285-25; Q9967

== ENCOUNTER 2023-11-12 16:40 | Inpatient (IN) | payer OTHER ==
[2023-11-12] MEDS ORDERED: ONDANSETRON 4 MG/2 ML VIAL ONE (20:22)
[2023-11-12 20:29] LABS: BASO % 1.2 % (0-2.0); EOS % 0.9 % (0-4.5); HEMATOCRIT 45.8 % (32.4-45.2); LYMPH % 26.3 % (8-40); MCH 29.6 pg (25.7-33.7); MCHC 34.9 g/dl (32.0-36.0); MEAN CELL VOLUME 84.8 fl (80-96); MEAN PLT VOLUME 10.1 fl (7.5-11.1); MONO % 7.2 % (3.8-10.2); NEUT % 64.4 % (42.8-82.8); PLATELET COUNT 357 10^3/uL (134-434); WHITE BLOOD COUNT 8.1 K/mm3 (4.0-10.0)
[2023-11-12 20:30] LABS: VENOUS BASE EXCESS 2.9 mmol/L (-2-2); VENOUS O2 SATURATION 93.7 % (70-80); VENOUS PCO2 43.8 mmHg (38-52); VENOUS PH 7.423 (7.310-7.410)
[2023-11-12] MEDS: SODIUM CHLORIDE 0.9% 500 ML INFUS.BAG IV ONE (20:36)
[2023-11-12] MEDS: ONDANSETRON 4 MG/2 ML VIAL IVPUSH ONE (20:36)
[2023-11-12 20:55] LABS: POTASSIUM 4.7 mmol/L (3.5-5.1)
[2023-11-12 20:57] LABS: ALBUMIN 2.9 g/dl (3.4-5.0); BLOOD UREA NITROGEN 12.2 mg/dL (7-18); CALCIUM 9.1 mg/dL (8.5-10.1)
[2023-11-12 21:00] LABS: CREATININE 0.7 mg/dL (0.55-1.3)
[2023-11-12 21:02] LABS: BILIRUBIN,TOTAL 0.9 mg/dL (0.2-1); TOT PROT 8.4 g/dl (6.4-8.2)
[2023-11-12] MEDS: SODIUM CHLORIDE 1,000 ML IV STA (23:21)
[2023-11-13] MEDS ORDERED: ONDANSETRON 4 MG/2 ML VIAL IVPUSH PRN (00:01)
[2023-11-13] MEDS ORDERED: METOCLOPRAMIDE HCL INJECTION 10 MG/2 ML VIAL IVPUSH PRN (06:45)
[2023-11-13 06:48] LABS: POTASSIUM 3.4 mmol/L (3.5-5.1)
[2023-11-13 06:49] LABS: CALCIUM 8.2 mg/dL (8.5-10.1)
[2023-11-13 06:50] LABS: BLOOD UREA NITROGEN 9.7 mg/dL (7-18)
[2023-11-13 06:53] LABS: CREATININE 0.5 mg/dL (0.55-1.3)
[2023-11-13] MEDS: SODIUM CHLORIDE 1,000 ML IV SCH (06:59)
[2023-11-13 07:40] LABS: BASO % 0.7 % (0-2.0); EOS % 1.3 % (0-4.5); HEMATOCRIT 40.3 % (32.4-45.2); HEMOGLOBIN 13.8 GM/dL (10.7-15.3); LYMPH % 25.6 % (8-40); MCH 29.7 pg (25.7-33.7); MCHC 34.1 g/dl (32.0-36.0); MEAN CELL VOLUME 87.2 fl (80-96); MEAN PLT VOLUME 9.9 fl (7.5-11.1); MONO % 8.2 % (3.8-10.2); NEUT % 64.2 % (42.8-82.8); PLATELET COUNT 284 10^3/uL (134-434); RBC 4.62 M/mm3 (3.60-5.2); RDW 13.3 % (11.6-15.6); WHITE BLOOD COUNT 7.5 K/mm3 (4.0-10.0)
[2023-11-13 07:53] LABS: POTASSIUM 3.4 mmol/L (3.5-5.1)
[2023-11-13 08:05] LABS: CALCIUM 8.5 mg/dL (8.5-10.1)
[2023-11-13 08:06] LABS: BLOOD UREA NITROGEN 10.2 mg/dL (7-18)
[2023-11-13 08:09] LABS: CREATININE 0.5 mg/dL (0.55-1.3)
[2023-11-13] MEDS ORDERED: ENOXAPARIN NA (PORCINE) 40 MG/0.4 ML DISP.SYRIN SQ ONE (09:05)
[2023-11-13] MEDS: ENOXAPARIN NA (PORCINE) 40 MG/0.4 ML DISP.SYRIN SQ SCH (09:12)
[2023-11-13] MEDS: INSULIN ASPART SLIDING SCALE (NOVOLOG) 1 VIAL SQ SCH (09:20)
[2023-11-13] MEDS ORDERED: INSULIN (NOVOLOG) ASPART 100 UNITS/ML 10ML VIAL ONE (09:22)
[2023-11-13] MEDS: MAG HYDROX/AL HYDROX/SIMETH 30 ML UNIT-DOSE CUP PO ONE (11:47)
[2023-11-13] MEDS: METOCLOPRAMIDE HCL INJECTION 10 MG/2 ML VIAL IVPUSH SCH (11:47)
[2023-11-13 16:15] LABS: ALBUMIN 2.6 g/dl (3.4-5.0)
[2023-11-13 16:18] LABS: BILIRUBIN,DIRECT 0.2 mg/dL (0.0-0.2)
[2023-11-13 16:20] LABS: BILIRUBIN,TOTAL 0.7 mg/dL (0.2-1)
[2023-11-13] MEDS ORDERED: INSULIN ASPART SLIDING SCALE (NOVOLOG) 1 VIAL SQ ONE ×2 (16:36→22:10)
[2023-11-14] MEDS: INSULIN ASPART SLIDING SCALE (NOVOLOG) 1 VIAL SQ SCH (06:28)
[2023-11-14] MEDS: PANTOPRAZOLE SODIUM 40 MG VIAL IVPUSH SCH (10:25)
[2023-11-14 10:55] LABS: PHENCYCLIDINE,URINE NEGATIVE (NEGATIVE); URINE BARBITURATES NEGATIVE (NEGATIVE); URINE BENZODIAZEPINES NEGATIVE (NEGATIVE)
[2023-11-14 10:56] LABS: METHADONE, UR NEGATIVE (NEGATIVE); OPIATES, URI NEGATIVE (NEGATIVE); URINE AMPHETAMINES NEGATIVE (NEGATIVE)
[2023-11-14 10:58] LABS: COCAINE, UR NEGATIVE (NEGATIVE)
[2023-11-14 11:15] LABS: EPI CELLS 16 /uL (0-25.1); HYALINE CASTS 1 /uL (0-3.1); PH,URINE 6.5 (5.0-8.0); URINE APPEARANCE CLOUDY; URINE BACTERIA >9,000 /uL (0-1359); URINE BILIRUBIN NEGATIVE (NEGATIVE); URINE COLOR YELLOW; URINE GLUCOSE (UA) NEGATIVE (NEGATIVE); URINE KETONE 1+ (NEGATIVE); URINE LEUK ESTERASE 1+ (NEGATIVE); URINE NITRITE NEGATIVE (NEGATIVE); URINE PROTEIN NEGATIVE (NEGATIVE); URINE RBC 7 /uL (0-23.9); URINE WBC 75 /uL (0-25.8)
[2023-11-14 11:24] LABS: HCG,QUALITATIVE URINE NEGATIVE
[2023-11-14] MEDS: POLYETHYLENE GLYCOL (HEALTHYLAX) 3350 17 GM PACKET PO SCH (14:46)
[2023-11-14] MEDS ORDERED: AMINO ACIDS 4.25%/D5W 1,000 ML IV SCH (17:30)
[2023-11-14] MEDS: MAG HYDROX/AL HYDROX/SIMETH 30 ML UNIT-DOSE CUP PO PRN (18:19)
[2023-11-15 09:37] LABS: CHLORIDE 98 mmol/L (98-107); SODIUM 137 mmol/L (136-145)
[2023-11-15 09:43] LABS: ALBUMIN 2.4 g/dl (3.4-5.0); ANION GAP 8 mmol/L (4-13); CALCIUM 8.3 mg/dL (8.5-10.1); CO2 31 mmol/L (21-32); GLUCOSE,RANDOM 176 mg/dL (74-106)
[2023-11-15 09:46] LABS: CREATININE 0.6 mg/dL (0.55-1.3); SGOT/AST 16 U/L (15-37); SGPT/ALT 26 U/L (13-61)
[2023-11-15 09:47] LABS: TOT PROT 6.8 g/dl (6.4-8.2)
[2023-11-15 09:48] LABS: ALK PHOS 197 U/L (45-117); BILIRUBIN,TOTAL 0.5 mg/dL (0.2-1)
[2023-11-15 09:51] LABS: BLOOD UREA NITROGEN 1.4 mg/dL (7-18)
[2023-11-15 11:41] LABS: BASO % 0.9 % (0-2.0); EOS % 2.7 % (0-4.5); HEMATOCRIT 40.7 % (32.4-45.2); HEMOGLOBIN 14.2 GM/dL (10.7-15.3); LYMPH % 34.9 % (8-40); MCH 29.9 pg (25.7-33.7); MCHC 34.8 g/dl (32.0-36.0); MEAN PLT VOLUME 9.9 fl (7.5-11.1); MONO % 9.1 % (3.8-10.2); NEUT % 52.4 % (42.8-82.8); PLATELET COUNT 269 10^3/uL (134-434); RBC 4.74 M/mm3 (3.60-5.2); RDW 13.7 % (11.6-15.6); WHITE BLOOD COUNT 4.9 K/mm3 (4.0-10.0)
[2023-11-15 11:48] LABS: INR 1.25 (0.83-1.09); PROTHROMBIN TIME (PATIENT) 14.5 SEC (9.7-13.0)
[2023-11-15] MEDS: amLODIPine BESYLATE 5 MG TABLET (FP) PO SCH (17:08)
[2023-11-15] MEDS: SODIUM CHLORIDE 1,000 ML IV SCH (17:08)
[2023-11-15] MEDS: POTASSIUM CHLORIDE ORAL LIQUID 20 MEQ/15 ML PO ONE (17:54)
[2023-11-15] MEDS: KCL 10 MEQ IVPB 10 MEQ/100 ML INFUS.BAG IVPB SCH (17:54)
[2023-11-15 23:55] VITALS: BMI 38.7
[2023-11-16 08:51] LABS: BASO % 0.9 % (0-2.0); EOS % 4.3 % (0-4.5); HEMATOCRIT 39.7 % (32.4-45.2); HEMOGLOBIN 13.7 GM/dL (10.7-15.3); LYMPH % 47.3 % (8-40); MCH 29.8 pg (25.7-33.7); MCHC 34.4 g/dl (32.0-36.0); MEAN CELL VOLUME 86.4 fl (80-96); MEAN PLT VOLUME 9.7 fl (7.5-11.1); MONO % 9.2 % (3.8-10.2); NEUT % 38.3 % (42.8-82.8); PLATELET COUNT 268 10^3/uL (134-434); RBC 4.59 M/mm3 (3.60-5.2); RDW 13.5 % (11.6-15.6); WHITE BLOOD COUNT 4.9 K/mm3 (4.0-10.0)
[2023-11-16 08:59] LABS: CHLORIDE 100 mmol/L (98-107); SODIUM 140 mmol/L (136-145)
[2023-11-16 09:01] LABS: CALCIUM 8.5 mg/dL (8.5-10.1)
[2023-11-16 09:02] LABS: ALBUMIN 2.4 g/dl (3.4-5.0); ANION GAP 8 mmol/L (4-13); CO2 32 mmol/L (21-32); GLUCOSE,RANDOM 129 mg/dL (74-106)
[2023-11-16 09:05] LABS: CREATININE 0.5 mg/dL (0.55-1.3); SGOT/AST 12 U/L (15-37); SGPT/ALT 26 U/L (13-61)
[2023-11-16 09:07] LABS: BILIRUBIN,TOTAL 0.7 mg/dL (0.2-1); TOT PROT 6.9 g/dl (6.4-8.2)
[2023-11-16 09:08] LABS: ALK PHOS 201 U/L (45-117)
[2023-11-16 09:11] LABS: BLOOD UREA NITROGEN 1.2 mg/dL (7-18)
[2023-11-16] MEDS: POTASSIUM CHLORIDE ORAL LIQUID 20 MEQ/15 ML PO ONE (16:56)
[2023-11-16] MEDS: KCL 10 MEQ IVPB 10 MEQ/100 ML INFUS.BAG IVPB SCH (16:57)
[2023-11-16] MEDS: INSULIN (LEVEMIR) 100 UNITS/ML UNITS SQ SCH (21:29)
[2023-11-17 09:21] LABS: BASO % 1.4 % (0-2.0); EOS % 4.1 % (0-4.5); HEMATOCRIT 40.6 % (32.4-45.2); LYMPH % 40.5 % (8-40); MCH 29.9 pg (25.7-33.7); MCHC 34.6 g/dl (32.0-36.0); MEAN CELL VOLUME 86.6 fl (80-96); MEAN PLT VOLUME 9.4 fl (7.5-11.1); PLATELET COUNT 284 10^3/uL (134-434); RBC 4.69 M/mm3 (3.60-5.2); WHITE BLOOD COUNT 4.8 K/mm3 (4.0-10.0)
[2023-11-17] MEDS: LISINOPRIL 5 MG TABLET PO SCH (09:36)
[2023-11-17 09:42] LABS: CHLORIDE 102 mmol/L (98-107); POTASSIUM 3.6 mmol/L (3.5-5.1); SODIUM 140 mmol/L (136-145)
[2023-11-17 09:52] LABS: ALBUMIN 2.5 g/dl (3.4-5.0); ANION GAP 8 mmol/L (4-13); CALCIUM 8.9 mg/dL (8.5-10.1); CO2 30 mmol/L (21-32); GLUCOSE,RANDOM 115 mg/dL (74-106)
[2023-11-17 09:55] LABS: CREATININE 0.5 mg/dL (0.55-1.3); SGOT/AST 17 U/L (15-37); SGPT/ALT 27 U/L (13-61)
[2023-11-17 09:57] LABS: BILIRUBIN,TOTAL 0.6 mg/dL (0.2-1); TOT PROT 7.1 g/dl (6.4-8.2)
[2023-11-17 09:58] LABS: ALK PHOS 200 U/L (45-117)
[2023-11-17] MEDS: METOCLOPRAMIDE HCL 10 MG TABLET (FP) PO SCH (11:42)
[2023-11-17 16:23] VITALS: RESP 18
[2023-11-18 14:58] VITALS: BP 149/97; PULSE 80; TEMP 97.8
== END 2023-11-18 16:08 | disposition home or self-care (01) | DRG 48 ==
LOC: JER 16:40 → JERBED 18:50 → J6S 11-13 11:01
PROVIDERS: ADMIT Family Medicine; ATTEND Family Medicine
DX: E11.43 Type 2 diabetes mellitus with diabetic autonomic (poly)neuropathy (principal); K31.84 Gastroparesis; I10 Essential (primary) hypertension; E11.40 Type 2 diabetes mellitus with diabetic neuropathy, unspecified; E86.0 Dehydration; E11.65 Type 2 diabetes mellitus with hyperglycemia; K21.9 Gastro-esophageal reflux disease without esophagitis; E66.01 Morbid (severe) obesity due to excess calories; E87.6 Hypokalemia; Z79.4 Long term (current) use of insulin; R94.31 Abnormal electrocardiogram [ECG] [EKG]; E66.9 Obesity, unspecified; Z68.38 Body mass index [BMI] 38.0-38.9, adult
CPT/HCPCS: 36415; 76700-TC; 80048; 80053; 80076; 80307; 81003; 82010; 82150; 82550; 82803; 82962; 82977; 83036; 83690; 84703; 85025; 85610; 86704; 86803; 87340; 87517; 93005; 93010; 99285-25

== ENCOUNTER 2024-10-26 15:49 | Emergency (ER) | payer OTHER ==
[2024-10-26 15:58] VITALS: RESP 18; TEMP 98.8; BMI 44.6
[2024-10-26] MEDS ORDERED: METOCLOPRAMIDE HCL INJECTION 10 MG/2 ML VIAL ONE (16:50)
[2024-10-26] MEDS ORDERED: ACETAMINOPHEN INJECTION 100 ML ONE (16:50)
[2024-10-26] MEDS ORDERED: FAMOTIDINE 20 MG/50 ML IVPB 20 MG/50 ML MG IVPB ONE (16:50)
[2024-10-26] MEDS: ACETAMINOPHEN 1000 MG/100 ML BAG IVPB ONE (17:59)
[2024-10-26] MEDS: FAMOTIDINE 20 MG/50 ML IVPB 20 MG/50 ML MG IVPB ONE (17:59)
[2024-10-26] MEDS: METOCLOPRAMIDE HCL INJECTION 10 MG/2 ML VIAL IVPB ONE (17:59)
[2024-10-26] MEDS: SODIUM CHLORIDE 0.9% 500 ML INFUS.BAG IV ONE (17:59)
[2024-10-26 18:03] LABS: VENOUS BASE EXCESS 10.8 mmol/L (-2-2); VENOUS O2 SATURATION 64.7 % (70-80); VENOUS PCO2 54.2 mmHg (38-52); VENOUS PH 7.455 (7.310-7.410)
[2024-10-26 18:11] LABS: BASO % 0.5 % (0-2.0); EOS % 1.1 % (0-4.5); HEMATOCRIT 50.4 % (32.4-45.2); HEMOGLOBIN 16.2 GM/dL (10.7-15.3); LYMPH % 28.3 % (8-40); MCH 27.5 pg (25.7-33.7); MCHC 32.3 g/dl (32.0-36.0); MEAN CELL VOLUME 85.2 fl (80-96); MEAN PLT VOLUME 8.8 fl (7.5-11.1); MONO % 7.7 % (3.8-10.2); NEUT % 62.4 % (42.8-82.8); PLATELET COUNT 349 10^3/uL (134-434); RBC 5.91 M/mm3 (3.60-5.2); RDW 14.4 % (11.6-15.6); WHITE BLOOD COUNT 7.2 K/mm3 (4.0-10.0)
[2024-10-26 18:30] LABS: ALBUMIN 3.3 g/dl (3.4-5.0); BLOOD UREA NITROGEN 19.3 mg/dL (7-18); CALCIUM 9.7 mg/dL (8.5-10.1)
[2024-10-26 18:33] LABS: CREATININE 0.8 mg/dL (0.55-1.3)
[2024-10-26 18:35] LABS: TOT PROT 9.2 g/dl (6.4-8.2)
[2024-10-26 19:23] LABS: HIV INTERPRETATION NEGATIVE (NEGATIVE)
[2024-10-26 20:13] LABS: POTASSIUM 3.1 mmol/L (3.5-5.1)
[2024-10-26] MEDS ORDERED: POTASSIUM CHLORIDE ORAL LIQUID 20 MEQ/15 ML ONE (20:40)
[2024-10-26] MEDS ORDERED: MAGNESIUM 1GM/D5W - 1 GM/100 ML IVPB IVPB ONE (20:40)
[2024-10-26] MEDS: MAGNESIUM 1GM/D5W - 1 GM/100 ML IVPB IVPB ONE (20:46)
[2024-10-26] MEDS: POTASSIUM CHLORIDE ORAL LIQUID 20 MEQ/15 ML PO ONE (20:46)
[2024-10-26 20:53] VITALS: BP 147/90; PULSE 88
[2024-10-26] MEDS ORDERED: KCL 10 MEQ IVPB 10 MEQ/100 ML INFUS.BAG IVPB ONE (21:29)
[2024-10-26] MEDS: KCL 10 MEQ IVPB 10 MEQ/100 ML INFUS.BAG IVPB SCH (21:40)
== END 2024-10-26 22:39 | disposition home or self-care (01) ==
LOC: JER 15:49
PROC: 3E033GC Introduction of Other Therapeutic Substance into Peripheral Vein, Percutaneous Approach (ICD-10-PCS; principal; 2024-10-26)
PROC: 3E033GC Introduction of Other Therapeutic Substance into Peripheral Vein, Percutaneous Approach (ICD-10-PCS; 2024-10-26)
PROC: 3E033NZ Introduction of Analgesics, Hypnotics, Sedatives into Peripheral Vein, Percutaneous Approach (ICD-10-PCS; 2024-10-26)
PROC: 3E033GC Introduction of Other Therapeutic Substance into Peripheral Vein, Percutaneous Approach (ICD-10-PCS; 2024-10-26)
DX: R11.2 Nausea with vomiting, unspecified (principal); R19.7 Diarrhea, unspecified; R50.9 Fever, unspecified; R10.13 Epigastric pain; R00.0 Tachycardia, unspecified; Z20.822 Contact with and (suspected) exposure to COVID-19
CPT/HCPCS: 0241U-QW; 36415; 80053; 82010; 82803; 83690; 85025; 86803; 87389; 99284-25; J0131

== ENCOUNTER 2024-11-11 10:22 | Observation (INO) | payer OTHER ==
[2024-11-11] MEDS ORDERED: ACETAMINOPHEN INJECTION 100 ML ONE (11:03)
[2024-11-11] MEDS ORDERED: MAG HYDROX/AL HYDROX/SIMETH 30 ML UNIT-DOSE CUP ONE (11:03)
[2024-11-11] MEDS ORDERED: FAMOTIDINE 20 MG/50 ML IVPB 20 MG/50 ML MG IVPB ONE (11:03)
[2024-11-11] MEDS: MAG HYDROX/AL HYDROX/SIMETH 30 ML UNIT-DOSE CUP PO ONE (11:53)
[2024-11-11 11:57] LABS: EOS % 1.1 % (0-4.5); HEMATOCRIT 44.7 % (32.4-45.2); HEMOGLOBIN 14.7 GM/dL (10.7-15.3); LYMPH % 25.8 % (8-40); MCH 28.1 pg (25.7-33.7); MCHC 32.8 g/dl (32.0-36.0); MEAN CELL VOLUME 85.7 fl (80-96); MEAN PLT VOLUME 8.7 fl (7.5-11.1); NEUT % 63.1 % (42.8-82.8); PLATELET COUNT 266 10^3/uL (134-434); RBC 5.22 M/mm3 (3.60-5.2); RDW 16.1 % (11.6-15.6); WHITE BLOOD COUNT 6.5 K/mm3 (4.0-10.0)
[2024-11-11 12:16] LABS: POTASSIUM 4.7 mmol/L (3.5-5.1)
[2024-11-11 12:17] LABS: CALCIUM 9.5 mg/dL (8.5-10.1)
[2024-11-11 12:18] LABS: ALBUMIN 3.1 g/dl (3.4-5.0); BLOOD UREA NITROGEN 15.8 mg/dL (7-18)
[2024-11-11 12:21] LABS: CREATININE 0.7 mg/dL (0.55-1.3)
[2024-11-11 12:23] LABS: BILIRUBIN,TOTAL 0.7 mg/dL (0.2-1); TOT PROT 7.9 g/dl (6.4-8.2)
[2024-11-11] MEDS: ACETAMINOPHEN 1000 MG/100 ML BAG IVPB ONE (12:45)
[2024-11-11] MEDS: FAMOTIDINE 20 MG/50 ML IVPB 20 MG/50 ML MG IVPB ONE (12:45)
[2024-11-11] MEDS: SODIUM CHLORIDE 0.9% 500 ML INFUS.BAG IV ONE (12:46)
[2024-11-11 13:15] LABS: HIV INTERPRETATION NEGATIVE (NEGATIVE)
[2024-11-11] MEDS: INSULIN ASPART SLIDING SCALE (NOVOLOG) 1 VIAL SQ SCH (16:34)
[2024-11-11 17:39] VITALS: BMI 43.4
[2024-11-11] MEDS ORDERED: POTASSIUM CHLORIDE 10 MEQ in SODIUM CHLORIDE 1,000 ML IVPB SCH (18:00)
[2024-11-11] MEDS: ONDANSETRON 4 MG/2 ML VIAL IVPUSH PRN (18:32)
[2024-11-11] MEDS: POTASSIUM CHLORIDE 10 MEQ in SODIUM CHLORIDE 1,000 ML IVPB SCH (19:38)
[2024-11-11] MEDS: POLYETHYLENE GLYCOL (HEALTHYLAX) 3350 17 GM PACKET PO SCH (21:23)
[2024-11-12 09:43] LABS: BASO % 0.6 % (0-2.0); HEMATOCRIT 39.1 % (32.4-45.2); HEMOGLOBIN 12.8 GM/dL (10.7-15.3); LYMPH % 32.2 % (8-40); MCH 28.3 pg (25.7-33.7); MCHC 32.9 g/dl (32.0-36.0); MEAN CELL VOLUME 86.1 fl (80-96); MEAN PLT VOLUME 8.7 fl (7.5-11.1); NEUT % 55.2 % (42.8-82.8); PLATELET COUNT 205 10^3/uL (134-434); RBC 4.54 M/mm3 (3.60-5.2); RDW 15.4 % (11.6-15.6); WHITE BLOOD COUNT 4.2 K/mm3 (4.0-10.0)
[2024-11-12 09:59] LABS: POTASSIUM 4.1 mmol/L (3.5-5.1)
[2024-11-12 10:08] LABS: CALCIUM 8.4 mg/dL (8.5-10.1)
[2024-11-12 10:09] LABS: ALBUMIN 2.6 g/dl (3.4-5.0); BLOOD UREA NITROGEN 7.4 mg/dL (7-18)
[2024-11-12 10:12] LABS: CREATININE 0.5 mg/dL (0.55-1.3)
[2024-11-12 10:13] LABS: BILIRUBIN,TOTAL 0.7 mg/dL (0.2-1); TOT PROT 6.6 g/dl (6.4-8.2)
[2024-11-12] MEDS: PROCHLORPERAZINE INJECTION 10 MG/2 ML VIAL IVPB PRN (19:53)
[2024-11-12] MEDS: PANTOPRAZOLE 40 MG TABLET PO SCH (21:25)
[2024-11-12] MEDS: MELATONIN 5 MG TABLETS PO ONE (21:25)
[2024-11-13] MEDS ORDERED: PANTOPRAZOLE 40 MG TABLET PO SCH (10:00)
[2024-11-13] MEDS: PANTOPRAZOLE SODIUM 40 MG VIAL IVPUSH SCH (12:33)
[2024-11-14] MEDS: VALSARTAN 160 MG TABLET PO SCH (12:20)
[2024-11-14 15:14] VITALS: RESP 18
[2024-11-14] MEDS ORDERED: INSULIN ASPART SLIDING SCALE (NOVOLOG) 1 VIAL SQ ONE (18:25)
[2024-11-14 22:17] VITALS: TEMP 98.2
[2024-11-15 05:46] VITALS: BP 126/75; PULSE 81
[2024-11-15] MEDS: INSULIN (LEVEMIR) 100 UNITS/ML UNITS SQ SCH (06:04)
[2024-11-15] MEDS: METOCLOPRAMIDE HCL 10 MG TABLET (FP) PO SCH (06:09)
== END 2024-11-15 08:49 | disposition home or self-care (01) ==
LOC: JER 10:22 → JERBED 14:05 → J5S 17:27
PROVIDERS: ADMIT Internal Medicine; ATTEND Internal Medicine
PROC: 0DB68ZX Excision of Stomach, Via Natural or Artificial Opening Endoscopic, Diagnostic (ICD-10-PCS; principal; 2024-11-11)
PROC: 3E033GC Introduction of Other Therapeutic Substance into Peripheral Vein, Percutaneous Approach (ICD-10-PCS; 2024-11-11)
PROC: 3E013VG Introduction of Insulin into Subcutaneous Tissue, Percutaneous Approach (ICD-10-PCS; 2024-11-11)
DX: K29.50 Unspecified chronic gastritis without bleeding (principal); K21.00 Gastro-esophageal reflux disease with esophagitis, without bleeding; K31.7 Polyp of stomach and duodenum; E11.43 Type 2 diabetes mellitus with diabetic autonomic (poly)neuropathy; K31.84 Gastroparesis; K59.09 Other constipation; E11.40 Type 2 diabetes mellitus with diabetic neuropathy, unspecified; K21.9 Gastro-esophageal reflux disease without esophagitis; I10 Essential (primary) hypertension; E66.01 Morbid (severe) obesity due to excess calories; Z68.41 Body mass index [BMI] 40.0-44.9, adult; Z79.4 Long term (current) use of insulin
CPT/HCPCS: 36415; 71045-TC-FY; 80053; 82962; 83690; 83735; 84443; 84703; 85025; 86803; 87389; 88305-TC; 93005; 93010; 96365; 96372; 96375; 99285-25; G0378; J0131

== ENCOUNTER 2024-11-23 15:27 | Observation (INO) | payer OTHER ==
[2024-11-23] MEDS ORDERED: METOCLOPRAMIDE HCL INJECTION 10 MG/2 ML VIAL ONE (17:15)
[2024-11-23] MEDS ORDERED: PANTOPRAZOLE SODIUM 40 MG VIAL ONE (17:15)
[2024-11-23 17:20] LABS: VENOUS BASE EXCESS 2.1 mmol/L (-2-2); VENOUS O2 SATURATION 89.7 % (70-80); VENOUS PCO2 41.8 mmHg (38-52); VENOUS PH 7.424 (7.310-7.410)
[2024-11-23] MEDS: METOCLOPRAMIDE HCL INJECTION 10 MG/2 ML VIAL IVPUSH ONE (17:20)
[2024-11-23] MEDS: PANTOPRAZOLE SODIUM 40 MG VIAL IVPUSH ONE (17:20)
[2024-11-23] MEDS: SODIUM CHLORIDE 0.9% 500 ML INFUS.BAG IV ONE (17:20)
[2024-11-23 17:21] LABS: BASO % 1.2 % (0-2.0); EOS % 1.5 % (0-4.5); HEMOGLOBIN 14.2 GM/dL (10.7-15.3); LYMPH % 20.8 % (8-40); MCHC 32.2 g/dl (32.0-36.0); MEAN CELL VOLUME 86.9 fl (80-96); MEAN PLT VOLUME 8.8 fl (7.5-11.1); MONO % 6.2 % (3.8-10.2); NEUT % 70.3 % (42.8-82.8); PLATELET COUNT 268 10^3/uL (134-434); RBC 5.06 M/mm3 (3.60-5.2); RDW 16.7 % (11.6-15.6); WHITE BLOOD COUNT 6.9 K/mm3 (4.0-10.0)
[2024-11-23 17:27] LABS: INR 1.1 (0.83-1.09)
[2024-11-23 17:30] LABS: ACTIVATED PTT 30.6 SECONDS (25.2-36.5)
[2024-11-23 17:41] LABS: POTASSIUM 3.7 mmol/L (3.5-5.1)
[2024-11-23 17:43] LABS: MAGNESIUM 1.8 mg/dL (1.8-2.4)
[2024-11-23 17:44] LABS: BLOOD UREA NITROGEN 4.8 mg/dL (7-18); CALCIUM 9.2 mg/dL (8.5-10.1)
[2024-11-23 17:48] LABS: CREATININE 0.6 mg/dL (0.55-1.3)
[2024-11-23 17:49] LABS: BILIRUBIN,TOTAL 0.6 mg/dL (0.2-1); TOT PROT 7.7 g/dl (6.4-8.2)
[2024-11-23] MEDS: POLYETHYLENE GLYCOL (HEALTHYLAX) 3350 17 GM PACKET PO SCH (23:08)
[2024-11-23] MEDS: BISACODYL 10 MG SUPP.RECT PR ONE (23:10)
[2024-11-23] MEDS: DEXTROSE 5%-0.45% SALINE 1,000 ML IV SCH (23:14)
[2024-11-24 02:25] VITALS: RESP 18; BMI 43.5
[2024-11-24] MEDS: METOCLOPRAMIDE HCL INJECTION 10 MG/2 ML VIAL IVPUSH PRN (03:00)
[2024-11-24] MEDS: INSULIN ASPART SLIDING SCALE (NOVOLOG) 1 VIAL SQ SCH (06:29)
[2024-11-24] MEDS ORDERED: INSULIN ASPART SLIDING SCALE (NOVOLOG) 1 VIAL SQ SCH (07:00)
[2024-11-24] MEDS: POLYETHYLENE GLYCOL (HEALTHYLAX) 3350 17 GM PACKET PO SCH (09:15)
[2024-11-24] MEDS: VALSARTAN 160 MG TABLET PO SCH (09:15)
[2024-11-24] MEDS: PANTOPRAZOLE SODIUM 40 MG VIAL IVPUSH SCH (09:16)
[2024-11-24 10:05] LABS: BASO % 0.7 % (0-2.0); HEMATOCRIT 38.1 % (32.4-45.2); HEMOGLOBIN 12.7 GM/dL (10.7-15.3); LYMPH % 26.9 % (8-40); MCH 28.4 pg (25.7-33.7); MCHC 33.2 g/dl (32.0-36.0); MEAN CELL VOLUME 85.4 fl (80-96); MEAN PLT VOLUME 8.9 fl (7.5-11.1); MONO % 7.1 % (3.8-10.2); NEUT % 63.3 % (42.8-82.8); PLATELET COUNT 217 10^3/uL (134-434); RBC 4.46 M/mm3 (3.60-5.2); RDW 16.1 % (11.6-15.6); WHITE BLOOD COUNT 5.6 K/mm3 (4.0-10.0)
[2024-11-24 10:33] LABS: POTASSIUM 3.5 mmol/L (3.5-5.1)
[2024-11-24 10:41] LABS: CALCIUM 8.3 mg/dL (8.5-10.1)
[2024-11-24 10:45] LABS: CREATININE 0.7 mg/dL (0.55-1.3)
[2024-11-24] MEDS: PEG 3350/NA SULF BICARB CL/KCL 4000 ML SOLN.RECON PO ONE (11:44)
[2024-11-24] MEDS: PANTOPRAZOLE 40 MG TABLET PO SCH (21:18)
[2024-11-25 08:49] VITALS: BP 138/83; PULSE 90; TEMP 98.4
[2024-11-25] MEDS: POLYETHYLENE GLYCOL (HEALTHYLAX) 3350 17 GM PACKET PO SCH (10:30)
== END 2024-11-25 11:55 | disposition home or self-care (01) ==
LOC: JER 15:27 → JERBED 18:12 → J6S 20:01
PROVIDERS: ADMIT Student in an Organized Health Care Education/Training Program; ATTEND Family Medicine
PROC: 3E0337Z Introduction of Electrolytic and Water Balance Substance into Peripheral Vein, Percutaneous Approach (ICD-10-PCS; principal; 2024-11-23)
PROC: 3E013VG Introduction of Insulin into Subcutaneous Tissue, Percutaneous Approach (ICD-10-PCS; 2024-11-23)
PROC: 3E033GC Introduction of Other Therapeutic Substance into Peripheral Vein, Percutaneous Approach (ICD-10-PCS; 2024-11-23)
DX: E10.43 Type 1 diabetes mellitus with diabetic autonomic (poly)neuropathy (principal); K31.84 Gastroparesis; K27.9 Peptic ulcer, site unspecified, unspecified as acute or chronic, without hemorrhage or perforation; R11.2 Nausea with vomiting, unspecified; K22.9 Disease of esophagus, unspecified; I10 Essential (primary) hypertension; Z90.49 Acquired absence of other specified parts of digestive tract; E66.9 Obesity, unspecified; K21.9 Gastro-esophageal reflux disease without esophagitis; K76.0 Fatty (change of) liver, not elsewhere classified
CPT/HCPCS: 36415; 74018-TC-FY; 80048; 80053; 82010; 82803; 82962; 83036; 83690; 83735; 84100; 84703; 85025; 85610; 85730; 86850; 86900; 86901; 93005; 93010; 96361; 96372; 96374; 96375; 96376; 99285-25; G0378